=== PATIENT | male | born 1960 | race African-American/Black ===

== ENCOUNTER → 2017-01-08 | Day surgery (SDC) | payer OTHER ==
[2016-12-21 10:27] VITALS: Ht 185.4 cm; Wt 109.1 kg
[~2017-01-08] VITALS: Ht 185.4 cm; Wt 109.1 kg
[~2017-01-08] MED LIST: LIDOCAINE HCL 2% 2 ML VIAL (20MG/ML) ONE; PROPOFOL IV EMULSION 10 MG/ML 20 ML VIAL IV ONE
[2017-01-08 09:17] VITALS: TEMP 36.8
--- NOTE | 2017-01-08 09:55 | Endo History and Physical ---
History & Physical Date of Service: Jan 08, 2017. Chief Complaint: history of polyps Referring Physician: Stephanie SCHMITT History of Present Illness 56 yo male who presents for colonoscopy secondary to history of colon polyps. Past Surgical History Hx Cardiac Surgery: No Hx Internal Defibrillator: No Hx Pacemaker: No Hx Abdominal Surgery: No Hx of Implantable Prosthesis: No Hx Post-Op Nausea and Vomiting: No Hx Cancer Surgery: No Hx Thoracic Surgery: No Hx Orthopedic: Yes (LT WRIST SURGERY S/P BREAK) Hx Urinary Tract Surgery: No Family History None Social History Smoking Status: Never Smoker Hx Substance Use: No Hx Alcohol Use: Yes (OCCASIONAL) Allergies Coded Allergies: No Known Allergies (Verified , 01/08/17) Current Medications Reported Home Medications Medications Dose Route/Sig Max Daily Dose Days Date Category No Active Prescriptions or Reported Medications Rx Vital Signs Weight (Kilograms): 109.09 Height (Feet): 6 Height (Inches): 1 Date Time Temp Pulse Resp B/P (MAP) Pulse Ox O2 Delivery O2 Flow Rate FiO2 01/08/17 09:17 36.8 72 20 141/83 (102) 98 Room Air Physical Exam General Appearance: WD/WN, no apparent distress Respiratory/Chest: Auscultation: breath sounds normal Cardiovascular: Heart Auscultation: RRR Abdomen: Bowel Sounds: normal Inspection & Palpation: soft, non-distended, no tenderness, guarding & rebound Assessment and Plan Assessment: 56 yo male who presents for colonoscopy secondary to history of colon polyps. Plan: Proceed with colonoscopy.
--- NOTE | 2017-01-08 10:32 | GI REPORT ---
Procedure Date: 01/08/2017 9:46 AM Procedure: Colonoscopy Indications: High risk colon cancer surveillance: Personal history of colonic polyps Medicines: Monitored Anesthesia Care Complications: No immediate complications. Estimated Blood Loss: Estimated blood loss: none. Procedure: Pre-Anesthesia Assessment: - Prior to the procedure, a History and Physical was performed, and patient medications and allergies were reviewed. The patient's tolerance of previous anesthesia was also reviewed. The risks and benefits of the procedure and the sedation options and risks were discussed with the patient. All questions were answered, and informed consent was obtained. Prior Anticoagulants: The patient has taken no previous anticoagulant or antiplatelet agents. ASA Grade Assessment: II - A patient with mild systemic disease. After reviewing the risks and benefits, the patient was deemed in satisfactory condition to undergo the procedure. After I obtained informed consent, the scope was passed under direct vision. Throughout the procedure, the patient's blood pressure, pulse, and oxygen saturations were monitored continuously. The scope was introduced through the anus and advanced to the terminal ileum. The colonoscopy was performed without difficulty. The patient tolerated the procedure well. The quality of the bowel preparation was good. The terminal ileum, ileocecal valve, appendiceal orifice, and rectum were photographed. Findings: Four sessile polyps were found in the rectum and in the sigmoid colon. The polyps were 3 to 5 mm in size. These polyps were removed with a cold snare. Resection and retrieval were complete. Two sessile and semi-pedunculated polyps were found in the rectum. The polyps were 5 to 11 mm in size. These polyps were removed with a hot snare. Resection and retrieval were complete. Area was tattooed with an injection of 3 mL of Alejandra ink. Multiple small-mouthed diverticula were found in the sigmoid colon. Non-bleeding internal hemorrhoids were found during retroflexion. The hemorrhoids were small. Impression: - Four 3 to 5 mm polyps in the rectum and in the sigmoid colon, removed with a cold snare. Resected and retrieved. - Two 5 to 11 mm polyps in the rectum, removed with a hot snare. Resected and retrieved. Tattooed. - Diverticulosis in the sigmoid colon. - Non-bleeding internal hemorrhoids. Recommendation: - Resume previous diet. - Continue present medications. - Repeat colonoscopy for surveillance based on pathology results. - Return to primary care physician as previously scheduled. Carlos Be DO 01/08/2017 10:30:46 AM This report has been signed electronically. Note Initiated On: 01/08/2017 9:46 AM I attest to the content of the Intraoperative Record and orders documented therein, exceptions below
--- NOTE | 2017-01-08 10:39 | Anesthesiology Progress Note ---
Anesthesia Post Op Note Date & Time Jan 08, 2017 at 10:39 Vital Signs Pain Intensity: 0 Vital Signs Past 12 Hours Date Time Temp Pulse Resp B/P (MAP) Pulse Ox O2 Delivery O2 Flow Rate FiO2 01/08/17 09:17 36.8 72 20 141/83 (102) 98 Room Air Notes Mental Status: alert / awake / arousable, participated in evaluation Pt Amnestic to Procedure: Yes Nausea / Vomiting: adequately controlled Pain: adequately controlled Airway Patency, RR, SpO2: stable & adequate BP & HR: stable & adequate Hydration State: stable & adequate Anesthetic Complications: no major complications apparent
[2017-01-08 10:58] VITALS: BP 126/90; PULSE 76; O2SAT 99
--- NOTE | 2017-01-08 11:04 | Discharge Instructions ---
Endoscopy Patient Instructions Date / Procedure(s) Performed Jan 08, 2017. Colonoscopy Allergy Information Coded Allergies: No Known Allergies (Verified , 01/08/17) Discharge Date / Findings Jan 08, 2017. Colon polyps Rectal polyp Diverticulosis Internal hemorrhoids Medication Instructions OK to resume all medications today as prescribed Reported Home Medications Medications Dose Route/Sig Max Daily Dose Days Date Category No Active Prescriptions or Reported Medications Rx Provider Instructions Activity Restrictions - No exercising or heavy lifting for 24 hours. - Do not drink alcohol the day of the procedure. - Do not drive a car or operate machinery until the day after the procedure. - Do not make any important decisions or sign important papers in 24 hours after the procedure. Following Day: - Return to full activity which may include returning to work/school. Diet Start your diet with liquids and light foods (jello, soup, juice, toast). Then eat your usual diet if not nauseated. Treatment For Common After Affects For mild abdominal pain, bloating, or excessive gas: - Rest - Eat lightly - Lie on right side Follow-Up Information Follow-up with Stephanie SCHMITT as scheduled Anesthesia Information What You Should Know You have had a procedure that required some medicine to reduce anxiety and discomfort. This treatment is called moderate sedation. After receiving the treatment, you may be sleepy, but you will be able to breathe on your own. The effects of the treatment may last for several hours. Follow these instructions along with Activity/Diet recommendations noted above: * Do NOT do anything where dizziness or clumsiness would be dangerous. * Rest quietly at home today, then you can be up and about tomorrow. * Have a responsible person stay with you the rest of today. * You may have had an I.V. today. If so, you may take the dressing off later today. Recommendations Call your doctor if: * Trouble breathing * Continuous vomiting for more than 24 hours * Temperature above 101 degrees * Severe abdominal pain or bloating * Pain not relieved by pain medicine ordered * There is increased drainage or redness from any incision * A large amount of rectal bleeding greater than 2-3 tablespoons. (If you had a polyp/s removed or have hemorrhoids, a small amount of blood - from the rectum is to be expected.) * You have any unanswered questions or concerns. IN THE EVENT OF A SERIOUS EMERGENCY, GO TO THE NEAREST EMERGENCY ROOM Your discharge instructions were prepared by provider Carlos Be. Patient Instructions Signature Page Curtisrubinablanca Bee Patient (or Guardian) Signature/Date: I have read and understand the instructions given to me by my caregivers. Caregiver/RN/Doctor Signature/Date: The above-named patient and/or guardian has received patient instructions on this date. + Original Patient Signature Page (only) stays with chart. Please make copy for patient.
== END | disposition home or self-care (01) ==
LOC: C.GI 08:46
PROVIDERS: ATTEND Internal Medicine
DX: Z12.11 Encounter for screening for malignant neoplasm of colon (principal); D12.5 Benign neoplasm of sigmoid colon; D12.8 Benign neoplasm of rectum; K57.30 Diverticulosis of large intestine without perforation or abscess without bleeding; K64.8 Other hemorrhoids; Z86.010 Personal history of colon polyps

== ENCOUNTER 2017-12-08 15:33 | Observation (INO) | payer OTHER ==
[~2017-12-08] VITALS: Ht 185.4 cm; Wt 104.8 kg
[2017-12-08] MEDS ORDERED: ADENOSINE IV SOLN 3 MG/ML 2 ML VIAL ONE (15:42)
[2017-12-08] MEDS ORDERED: OPTIRAY 320 IV PRN (16:00)
[2017-12-08 16:01] LABS: ISTAT IONIZED CALCIUM 1.11 mmol/l (1.12-1.32); ISTAT POTASSIUM 3.6 mEq/L (3.3-5.0)
[2017-12-08 16:10] LABS: BASO % 0.1 %; BASO ABS # 0.01 K/uL (0-0.2); EOS % 1.4 %; HEMATOCRIT 41.4 % (42-52); HEMOGLOBIN 14.2 g/dL (14.0-18.0); IG# 0.01 K/uL (0.00-0.02); LYMPH % 44.1 %; LYMPH ABS # 3.18 K/uL (1.2-3.4); MEAN CELL VOLUME 88.3 fL (80-100); MEAN CORPUSCULAR HEMOGLOBIN 30.3 pg (25-34); MEAN CORPUSCULAR HGB CONC 34.3 g/dl (32-36); MEAN PLATELET VOLUME 10.1 fL (7.4-10.4); MONO % 9.7 %; NEUT % 44.6 %; NEUT ABS # 3.21 K/uL (1.4-6.5); PLATELET COUNT 335 K/uL (130-400); RED CELL DISTRIBUTION WIDTH CV 12.5 % (11.5-14.5); RED CELL DISTRIBUTION WIDTH SD 39.8 fL (36.4-46.3); WHITE BLOOD COUNT 7.21 K/uL (4.8-10.8)
[2017-12-08] MEDS ORDERED: MULT-513 PO (16:15)
[2017-12-08] MEDS ORDERED: OMEG10007 PO (16:15)
[2017-12-08] MEDS ORDERED: COEN1CAP7 PO (16:15)
[2017-12-08] MEDS ORDERED: ASPI325T39 PO (16:15)
[2017-12-08 16:18] LABS: PTT PATIENT 27.3 SECONDS (21.0-31.0)
[2017-12-08 16:27] LABS: CALCIUM 8.6 mg/dl (8.5-10.1); CREATININE 1.08 mg/dl (0.60-1.40); POTASSIUM 3.6 mmol/L (3.5-5.1)
--- NOTE | 2017-12-08 16:40 | DIAGNOSTIC IMAGING REPORT ---
CT ANGIOGRAM OF THE CHEST CLINICAL HISTORY: Atypical chest pain. COMPARISON STUDY: No priors. TECHNIQUE: Following the IV administration of 90 cc of Optiray 320, CT angiogram of the chest was performed from the upper abdomen to the thoracic inlet utilizing the pulmonary embolus protocol. Images are reviewed in the axial, sagittal, and coronal planes. 3-D MIPS images are created and assessed. IV contrast was administered without complication. A dose lowering technique was utilized adhering to the principles of ALARA. CT DOSE: 584.17 mGy.cm FINDINGS: Thyroid: Imaged portions of the thyroid gland are normal in size and attenuation. Thoracic aorta: The thoracic aorta is normal in caliber and demonstrates standard 3-vessel arch anatomy. No dissection is seen. Pulmonary vasculature: The pulmonary trunk is normal in caliber. There are no filling defects identified in main, lobar, or segmental pulmonary branches to suggest pulmonary embolus. Heart: The heart is normal in size and without pericardial effusion. The coronary arteries are densely calcified. Lungs and pleural spaces: Evaluation of the lung parenchyma is modestly degraded by motion artifact. Mild emphysematous change is seen at the lung apices. No airspace consolidation or pleural effusion is identified. Mild diffuse peribronchial thickening suggests reactive airway disease. The trachea and central airways are clear. There is a 7 mm pleural-based nodule in the right middle lobe along the minor fissure seen on image #132. Mediastinum: There is no mediastinal lymphadenopathy. Janie: Clear. Axillae: There is no axillary lymphadenopathy. Upper abdomen: Partially visualized upper abdominal viscera is within normal limits. Skeletal structures: No lytic or blastic bony lesions are seen. Numerous mild compression deformities are noted throughout the thoracic spine. IMPRESSION: 1. There is no evidence of pulmonary embolus in the main, lobar, or segmental pulmonary arteries. 2. Mild emphysema. 3. There is no airspace consolidation or pleural effusion. 4. Mild diffuse peribronchial thickening suggests reactive air disease. Clinical correlation will be required. 5. There is a 7 mm pathologically indeterminant but low suspicion pleural-based nodule in the right middle lobe along the minor fissure. This can be followed as per the Fleischner criteria. See below. 6. The coronary arteries are densely calcified. 7. Additional findings as above. Please refer to below summary of Fleischner criteria recommendations for follow-up of incidental CT nodules (H [place], Guidelines for management of small pulmonary nodules detected on CT scans: A statement from the Fleischner Society, Radiology 237: [phone].) SOLID NODULES Solitary nodule size: <6 mm * low risk patients: no follow-up needed * high risk patients: optional CT at 12 months Solitary nodule size: 6-8 mm * low risk patients: follow-up at 6-12 months, then consider further follow-up at 18-24 months * high risk patients: initial follow-up CT at 6-12 months and then at 18-24 months if no change Solitary nodule size: >8 mm * either low or high risk patients - consider follow-up CT at 3 months, and/or CT-PET, and/or biopsy Multiple nodules size: <6 mm * low risk patients: no routine follow-up * high risk patients: optional CT at 12 months Multiple nodules size: 6-8 mm * low risk patients: follow-up at 3-6 months, then consider further follow-up at 18-24 months * high risk patients: follow-up at 3-6 months, then at 18-24 months if no change Multiple nodules size: >8 mm * low risk patients: follow-up at 3-6 months, then consider further follow-up at 18-24 months * high risk patients: follow-up at 3-6 months, then at 18-24 months if no change Note: newly detected indeterminate nodule in persons 35 years of age or older. * low risk patients: minimal or absent history of smoking and/or other known risk factors * high risk patients: history of smoking or of other known risk factors (e.g. first degree relative with lung cancer, or exposure to asbestos, radon, uranium) * if a nodule up to 8 mm is partly solid or is ground glass further follow-up is required after 24 months to exclude possible slow growing adenocarcinoma (LILY) SUBSOLID NODULES Solitary pure ground-glass nodule * nodule size <6 mm - no CT follow-up required * nodule size >=6 mm - follow-up CT at 6-12 months, then every 2 years until 5 years Solitary part-solid nodule * nodule size <6 mm - no CT follow-up required * nodule size >=6 mm - follow-up CT at 3-6 months. If unchanged, and solid component remains <6 mm, then annual follow-up for 5 years Multiple subsolid nodules * nodule size <6 mm - follow-up CT at 3-6 months, consider further follow-up at 2 and 4 years if stable * nodule size >=6 mm - follow-up CT at 3-6 months, subsequent management based on the most suspicious nodule(s) Electronically signed by: Sedrick Salomon M.D. 12/08/2017 4:39 PM Dictated Date/Time: 12/08/2017 4:33 PM
[2017-12-08] MEDS ORDERED: ACETAMINOPHEN 325 MG TAB PO PRN (17:45)
[2017-12-08] MEDS ORDERED: NITROGLYCERIN 0.4 MG SL PER TAB CHARGE SL PRN (17:45)
--- NOTE | 2017-12-08 17:55 | History and Physical ---
History & Physical Date & Time of Service: Dec 08, 2017 at 17:55 Chief Complaint: Chest Pain Primary Care Physician: No Doctor, Assigned History of Present Illness Source: patient, spouse, hospital records 57-year-old male with no significant past medical history presented to the ER for chest pain. Patient said chest pain occurs 1 hour after he had sexual intercourse with his partner. He said he was sitting on the sofa when the chest pain occurred. He said he felt someone was sitting in his chest. Described the pain has 8 out of 10, nonradiating, constant associated with shortness of breath. His partner gave him aspirin and he drove to the ER. he denies any similar episode in the past. He recently had a trip to [place] Pt said that he is very active and he plays instrument in a band. When presented to the ER his heart rate was in the 220s and EKG show SVT. SVT broke after Valsalva maneuver. Denies any substance use or illicit drug. Currently patient denies any chest pain, palpitation, dizziness, shortness of breath. Past Medical/Surgical History Medical Problems: (1) Chest pain (2) No significant past medical history Family History Atrial fibrillation Social History Smoking Status: Former Smoker Alcohol Use: socially Allergies Coded Allergies: No Known Allergies (Verified , 01/08/17) Home Medications Scheduled Coenzyme Q10 (Ubidecarenone) (Coq10), 1 CAP PO DAILY Fish Oil ([place]-3), 1 CAP PO DAILY Multivitamins/Minerals (Mvi With Minerals), 1 TAB PO DAILY Review of Systems Constitutional: No fever, No chills Eyes: No worsening of vision, No eye pain ENT: No nasal symptoms, No sore throat Respiratory: + shortness of breath, No wheezing Cardiovascular: + chest pain, + palpitations, No claudication Abdomen: No pain, No nausea, No vomiting Musculoskeletal: No calf pain Genitourinary - Male: No hematuria, No dysuria Neurologic: No numbness/tingling, No balance problems Psychiatric: No substance abuse Endocrine: No fatigue Hematologic / Lymphatic: No night sweats Integumentary: No rash, No itch Physical Exam Vital Signs Date Time Temp Pulse Resp B/P (MAP) Pulse Ox O2 Delivery O2 Flow Rate FiO2 12/08/17 17:21 133/97 12/08/17 17:00 92 29 98 12/08/17 16:31 94 16 139/102 96 Room Air 12/08/17 15:54 100 12/08/17 15:49 98 Room Air 12/08/17 15:45 114 12/08/17 15:41 213 12/08/17 15:34 18 Room Air General Appearance: WD/WN, no apparent distress Head: normocephalic, atraumatic Eyes: PERRL, EOMI ENT: hearing grossly normal Neck: no JVD, trachea midline Respiratory/Chest: lungs clear, no respiratory distress, no accessory muscle use Cardiovascular: no JVD, no murmur, + tachycardia Abdomen/GI: normal bowel sounds, soft Back: no CVA tenderness Extremities/Musculoskelatal: no calf tenderness Neurologic/Psych: no motor/sensory deficits, alert, oriented x 3 Skin: warm/dry, no rash Diagnostics Laboratory Results Results Past 24 Hours Test 12/08/17 15:40 12/08/17 15:45 12/08/17 15:47 Range/Units White Blood Count 7.21 4.8-10.8 K/uL Red Blood Count 4.69 4.7-6.1 M/uL Hemoglobin 14.2 14.0-18.0 g/dL Hematocrit 41.4 42-52 % Mean Corpuscular Volume 88.3 80-100 fL Mean Corpuscular Hemoglobin 30.3 25-34 pg Mean Corpuscular Hemoglobin Concent 34.3 32-36 g/dl Platelet Count 335 130-400 K/uL Mean Platelet Volume 10.1 7.4-10.4 fL Neutrophils (%) (Auto) 44.6 % Lymphocytes (%) (Auto) 44.1 % Monocytes (%) (Auto) 9.7 % Eosinophils (%) (Auto) 1.4 % Basophils (%) (Auto) 0.1 % Neutrophils # (Auto) 3.21 1.4-6.5 K/uL Lymphocytes # (Auto) 3.18 1.2-3.4 K/uL Monocytes # (Auto) 0.70 0.11-0.59 K/uL Eosinophils # (Auto) 0.10 0-0.5 K/uL Basophils # (Auto) 0.01 0-0.2 K/uL RDW Standard Deviation 39.8 36.4-46.3 fL RDW Coefficient of Variation 12.5 11.5-14.5 % Immature Granulocyte % (Auto) 0.1 % Immature Granulocyte # (Auto) 0.01 0.00-0.02 K/uL Prothrombin Time 10.3 9.0-12.0 SECONDS Prothromb Time International Ratio 1.0 0.9-1.1 Activated Partial Thromboplast Time 27.3 21.0-31.0 SECONDS Partial Thromboplastin Ratio 1.1 Sodium Level 139 136-145 mmol/L Potassium Level 3.6 3.5-5.1 mmol/L Chloride Level 108 98-107 mmol/L Carbon Dioxide Level 23 21-32 mmol/L Anion Gap 8.0 17.0 16-25 mmol/L Blood Urea Nitrogen 14 7-18 mg/dl Creatinine 1.08 0.60-1.40 mg/dl Est Creatinine Clear Calc Drug Dose 86.3 ml/min Estimated GFR () 88.5 Estimated GFR (Non- 76.3 BUN/Creatinine Ratio 13.4 10-20 Random Glucose 102 70-99 mg/dl Calcium Level 8.6 8.5-10.1 mg/dl Magnesium Level 2.1 1.8-2.4 mg/dl Bedside Troponin I < 0.030 0-0.045 ng/ml Bedside Hemoglobin 14.6 14.0-18.0 g/dl Bedside Hematocrit 43 42-52 % Bedside Sodium 142 135-144 mEq/L Bedside Potassium 3.6 3.3-5.0 mEq/L Bedside Chloride 107 101-112 mEq/L Bedside Total CO2 22 24-31 mEq/l Bedside Blood Urea Nitrogen 15 7-18 mg/dl Bedside Creatinine 1.0 0.6-1.3 mg/dl Bedside Glucose (other) 110 70-99 mg/dl Bedside Ionized Calcium (Jemal) 1.11 1.12-1.32 mmol/l Diagnostic Radiology CT ANGIOGRAM OF THE CHEST CLINICAL HISTORY: Atypical chest pain. COMPARISON STUDY: No priors. TECHNIQUE: Following the IV administration of 90 cc of Optiray 320, CT angiogram of the chest was performed from the upper abdomen to the thoracic inlet utilizing the pulmonary embolus protocol. Images are reviewed in the axial, sagittal, and coronal planes. 3-D MIPS images are created and assessed. IV contrast was administered without complication. A dose lowering technique was utilized adhering to the principles of ALARA. CT DOSE: 584.17 mGy.cm FINDINGS: Thyroid: Imaged portions of the thyroid gland are normal in size and attenuation. Thoracic aorta: The thoracic aorta is normal in caliber and demonstrates standard 3-vessel arch anatomy. No dissection is seen. Pulmonary vasculature: The pulmonary trunk is normal in caliber. There are no filling defects identified in main, lobar, or segmental pulmonary branches to suggest pulmonary embolus. Heart: The heart is normal in size and without pericardial effusion. The coronary arteries are densely calcified. Lungs and pleural spaces: Evaluation of the lung parenchyma is modestly degraded by motion artifact. Mild emphysematous change is seen at the lung apices. No airspace consolidation or pleural effusion is identified. Mild diffuse peribronchial thickening suggests reactive airway disease. The trachea and central airways are clear. There is a 7 mm pleural-based nodule in the right middle lobe along the minor fissure seen on image #132. Mediastinum: There is no mediastinal lymphadenopathy. Janie: Clear. Axillae: There is no axillary lymphadenopathy. Upper abdomen: Partially visualized upper abdominal viscera is within normal limits. Skeletal structures: No lytic or blastic bony lesions are seen. Numerous mild compression deformities are noted throughout the thoracic spine. IMPRESSION: 1. There is no evidence of pulmonary embolus in the main, lobar, or segmental pulmonary arteries. 2. Mild emphysema. 3. There is no airspace consolidation or pleural effusion. 4. Mild diffuse peribronchial thickening suggests reactive air disease. Clinical correlation will be required. 5. There is a 7 mm pathologically indeterminant but low suspicion pleural-based nodule in the right middle lobe along the minor fissure. This can be followed as per the Fleischner criteria. See below. 6. The coronary arteries are densely calcified. 7. Additional findings as above. Please refer to below summary of Fleischner criteria recommendations for follow-up of incidental CT nodules (Martell Lugo, Guidelines for management of small pulmonary nodules detected on CT scans: A statement from the Fleischner Society, Radiology 237: [phone].) SOLID NODULES Solitary nodule size: <6 mm * low risk patients: no follow-up needed * high risk patients: optional CT at 12 months Solitary nodule size: 6-8 mm * low risk patients: follow-up at 6-12 months, then consider further follow-up at 18-24 months * high risk patients: initial follow-up CT at 6-12 months and then at 18-24 months if no change Solitary nodule size: >8 mm * either low or high risk patients - consider follow-up CT at 3 months, and/or CT-PET, and/or biopsy Multiple nodules size: <6 mm * low risk patients: no routine follow-up * high risk patients: optional CT at 12 months Multiple nodules size: 6-8 mm * low risk patients: follow-up at 3-6 months, then consider further follow-up at 18-24 months * high risk patients: follow-up at 3-6 months, then at 18-24 months if no change Multiple nodules size: >8 mm * low risk patients: follow-up at 3-6 months, then consider further follow-up at 18-24 months * high risk patients: follow-up at 3-6 months, then at 18-24 months if no change Note: newly detected indeterminate nodule in persons 35 years of age or older. * low risk patients: minimal or absent history of smoking and/or other known risk factors * high risk patients: history of smoking or of other known risk factors (e.g. first degree relative with lung cancer, or exposure to asbestos, radon, uranium) * if a nodule up to 8 mm is partly solid or is ground glass further follow-up is required after 24 months to exclude possible slow growing adenocarcinoma (LILY) SUBSOLID NODULES Solitary pure ground-glass nodule * nodule size <6 mm - no CT follow-up required * nodule size >=6 mm - follow-up CT at 6-12 months, then every 2 years until 5 years Solitary part-solid nodule * nodule size <6 mm - no CT follow-up required * nodule size >=6 mm - follow-up CT at 3-6 months. If unchanged, and solid component remains <6 mm, then annual follow-up for 5 years Multiple subsolid nodules * nodule size <6 mm - follow-up CT at 3-6 months, consider further follow-up at 2 and 4 years if stable * nodule size >=6 mm - follow-up CT at 3-6 months, subsequent management based on the most suspicious nodule(s) Electronically signed by: Sedrick Salomon M.D. 12/08/2017 4:39 PM Dictated Date/Time: 12/08/2017 4:33 PM Impression Assessment and Plan Chest Pain Need to r/o ACS Received Aspirin prior arrival in the the ER EKG on admission showed SVT Repeat EKG showed no ischemic changes Initial troponin negative Follow up troponin level Continue aspirin Cardio consult Check ECHO and Lipid panel and EKG in am Will monitor in tele SVT HR on admission 218 Broke with Valsalva maneuver HR control Check TSH and UDS DVT px on heparin subq CODE STATUS FULL CODE Resuscitation Status VTE Prophylaxis Will order VTE Prophylaxis: Yes
--- NOTE | 2017-12-08 17:58 | EMERGENCY ROOM VISIT NOTE ---
History Report prepared by Katerinaibbrayan: Caroline Puente Under the Supervision of: Dr. Damon Kemp M.D. 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 He states he had sexual intercourse about an hour before the pain started. He stated he showered and was just sitting down when the chest pain started. He denies using Viagra or any similar products. He describes his pain as feeling like "being punched in the chest" and rates his discomfort as an 8/10 in severity. He has never experienced similar pain in the past. He admits to some mild shortness of breath. He states he occasionally drinks alcohol and last had "a couple drinks last night". He denies any family history of heart disease. He did drive to [place] recently. 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 He denies any history of hypertension, hyperlipidemia or DM and states he is typically very healthy. He admits to a family history of atrial fibrillation. Source of History: patient Onset: 30 minutes MANAGER FRENCH Position: chest Symptom Intensity: 8/10 Quality: other (Punched in the chest) Timing: resolved Associated Symptoms: + SOB Review of Systems See HPI for pertinent positives & negatives. A total of 10 systems reviewed and were otherwise negative. Past Medical & Surgical Medical Problems: (1) Chest pain (2) No significant past medical history Family History Atrial fibrillation Social History Smoking Status: Former Smoker Alcohol Use: occasionally Drug Use: none Marital Status: in relationship Housing Status: lives with family Occupation Status: retired Current/Historical Medications Scheduled Aspirin (Aspirin Ec), 325 MG PO TODAY Coenzyme Q10 (Ubidecarenone) (Coq10), 1 CAP PO DAILY Fish Oil (Magazine-3), 1 CAP PO DAILY Multivitamins/Minerals (Mvi With Minerals), 1 TAB PO DAILY Allergies Coded Allergies: No Known Allergies (Verified , 01/08/17) Physical Exam Vital Signs Date Time Temp Pulse Resp B/P (MAP) Pulse Ox O2 Delivery O2 Flow Rate FiO2 12/08/17 17:21 133/97 12/08/17 17:00 92 29 98 12/08/17 16:31 94 16 139/102 96 Room Air 12/08/17 15:54 100 12/08/17 15:49 98 Room Air 12/08/17 15:45 114 12/08/17 15:41 213 12/08/17 15:34 18 Room Air Physical Exam Constitutional: Vital signs reviewed. General: Patient is anxious appearing. Eyes: Pupils are equal round reactive to light. Slight conjunctival injection to bilateral eyes. ENT: Pharynx is clear without erythema or exudate. Mucous membranes are moist. Neck supple without meningeal signs. Respiratory: Clear to auscultation bilaterally. Breath sounds are equal bilaterally. Cardiovascular: Tachycardic heart rate of 215. Regular rhythm. No rubs or gallops. GI: Soft, nondistended and nontender. Bowel sounds are present. Musculoskeletal: No peripheral edema. No lower extremity tenderness. Integumentary: No cyanosis. Neurological: The patient is awake and alert. No focal deficits. Psychiatric: Anxious appearing. Medical Decision & Procedures ER Provider Diagnostic Interpretation: Radiology results as stated below per my review and the radiologist's interpretation: CT ANGIOGRAM OF THE CHEST CLINICAL HISTORY: Atypical chest pain. COMPARISON STUDY: No priors. TECHNIQUE: Following the IV administration of 90 cc of Optiray 320, CT angiogram of the chest was performed from the upper abdomen to the thoracic inlet utilizing the pulmonary embolus protocol. Images are reviewed in the axial, sagittal, and coronal planes. 3-D MIPS images are created and assessed. IV contrast was administered without complication. A dose lowering technique was utilized adhering to the principles of ALARA. CT DOSE: 584.17 mGy.cm FINDINGS: Thyroid: Imaged portions of the thyroid gland are normal in size and attenuation. Thoracic aorta: The thoracic aorta is normal in caliber and demonstrates standard 3-vessel arch anatomy. No dissection is seen. Pulmonary vasculature: The pulmonary trunk is normal in caliber. There are no filling defects identified in main, lobar, or segmental pulmonary branches to suggest pulmonary embolus. Heart: The heart is normal in size and without pericardial effusion. The coronary arteries are densely calcified. Lungs and pleural spaces: Evaluation of the lung parenchyma is modestly degraded by motion artifact. Mild emphysematous change is seen at the lung apices. No airspace consolidation or pleural effusion is identified. Mild diffuse peribronchial thickening suggests reactive airway disease. The trachea and central airways are clear. There is a 7 mm pleural-based nodule in the right middle lobe along the minor fissure seen on image #132. Mediastinum: There is no mediastinal lymphadenopathy. Janie: Clear. Axillae: There is no axillary lymphadenopathy. Upper abdomen: Partially visualized upper abdominal viscera is within normal limits. Skeletal structures: No lytic or blastic bony lesions are seen. Numerous mild compression deformities are noted throughout the thoracic spine. IMPRESSION: 1. There is no evidence of pulmonary embolus in the main, lobar, or segmental pulmonary arteries. 2. Mild emphysema. 3. There is no airspace consolidation or pleural effusion. 4. Mild diffuse peribronchial thickening suggests reactive air disease. Clinical correlation will be required. 5. There is a 7 mm pathologically indeterminant but low suspicion pleural-based nodule in the right middle lobe along the minor fissure. This can be followed as per the Fleischner criteria. See below. 6. The coronary arteries are densely calcified. 7. Additional findings as above. Please refer to below summary of Fleischner criteria recommendations for follow-up of incidental CT nodules (Martell Lugo, Guidelines for management of small pulmonary nodules detected on CT scans: A statement from the Fleischner Society, Radiology 237: [phone].) SOLID NODULES Solitary nodule size: <6 mm * low risk patients: no follow-up needed * high risk patients: optional CT at 12 months Solitary nodule size: 6-8 mm * low risk patients: follow-up at 6-12 months, then consider further follow-up at 18-24 months * high risk patients: initial follow-up CT at 6-12 months and then at 18-24 months if no change Solitary nodule size: >8 mm * either low or high risk patients - consider follow-up CT at 3 months, and/or CT-PET, and/or biopsy Multiple nodules size: <6 mm * low risk patients: no routine follow-up * high risk patients: optional CT at 12 months Multiple nodules size: 6-8 mm * low risk patients: follow-up at 3-6 months, then consider further follow-up at 18-24 months * high risk patients: follow-up at 3-6 months, then at 18-24 months if no change Multiple nodules size: >8 mm * low risk patients: follow-up at 3-6 months, then consider further follow-up at 18-24 months * high risk patients: follow-up at 3-6 months, then at 18-24 months if no change Note: newly detected indeterminate nodule in persons 35 years of age or older. * low risk patients: minimal or absent history of smoking and/or other known risk factors * high risk patients: history of smoking or of other known risk factors (e.g. first degree relative with lung cancer, or exposure to asbestos, radon, uranium) * if a nodule up to 8 mm is partly solid or is ground glass further follow-up is required after 24 months to exclude possible slow growing adenocarcinoma (LILY) SUBSOLID NODULES Solitary pure ground-glass nodule * nodule size <6 mm - no CT follow-up required * nodule size >=6 mm - follow-up CT at 6-12 months, then every 2 years until 5 years Solitary part-solid nodule * nodule size <6 mm - no CT follow-up required * nodule size >=6 mm - follow-up CT at 3-6 months. If unchanged, and solid component remains <6 mm, then annual follow-up for 5 years Multiple subsolid nodules * nodule size <6 mm - follow-up CT at 3-6 months, consider further follow-up at 2 and 4 years if stable * nodule size >=6 mm - follow-up CT at 3-6 months, subsequent management based on the most suspicious nodule(s) Electronically signed by: Sedrick Salomon M.D. 12/08/2017 4:39 PM Laboratory Results 12/08/17 15:40 Red Blood Count 4.69, Mean Corpuscular Volume 88.3, Mean Corpuscular Hemoglobin 30.3, Mean Corpuscular Hemoglobin Concent 34.3, Mean Platelet Volume 10.1, Neutrophils (%) (Auto) 44.6, Lymphocytes (%) (Auto) 44.1, Monocytes (%) (Auto) 9.7, Eosinophils (%) (Auto) 1.4, Basophils (%) (Auto) 0.1, Neutrophils # (Auto) 3.21, Lymphocytes # (Auto) 3.18, Monocytes # (Auto) 0.70, Eosinophils # (Auto) 0.10, Basophils # (Auto) 0.01 12/08/17 15:40 Test 12/08/17 15:40 12/08/17 15:45 12/08/17 15:47 White Blood Count 7.21 K/uL (4.8-10.8) Red Blood Count 4.69 M/uL (4.7-6.1) Hemoglobin 14.2 g/dL (14.0-18.0) Hematocrit 41.4 % (42-52) Mean Corpuscular Volume 88.3 fL (80-100) Mean Corpuscular Hemoglobin 30.3 pg (25-34) Mean Corpuscular Hemoglobin Concent 34.3 g/dl (32-36) Platelet Count 335 K/uL (130-400) Mean Platelet Volume 10.1 fL (7.4-10.4) Neutrophils (%) (Auto) 44.6 % Lymphocytes (%) (Auto) 44.1 % Monocytes (%) (Auto) 9.7 % Eosinophils (%) (Auto) 1.4 % Basophils (%) (Auto) 0.1 % Neutrophils # (Auto) 3.21 K/uL (1.4-6.5) Lymphocytes # (Auto) 3.18 K/uL (1.2-3.4) Monocytes # (Auto) 0.70 K/uL (0.11-0.59) Eosinophils # (Auto) 0.10 K/uL (0-0.5) Basophils # (Auto) 0.01 K/uL (0-0.2) RDW Standard Deviation 39.8 fL (36.4-46.3) RDW Coefficient of Variation 12.5 % (11.5-14.5) Immature Granulocyte % (Auto) 0.1 % Immature Granulocyte # (Auto) 0.01 K/uL (0.00-0.02) Prothrombin Time 10.3 SECONDS (9.0-12.0) Prothromb Time International Ratio 1.0 (0.9-1.1) Activated Partial Thromboplast Time 27.3 SECONDS (21.0-31.0) Partial Thromboplastin Ratio 1.1 Est Creatinine Clear Calc Drug Dose 86.3 ml/min Estimated GFR () 88.5 Estimated GFR (Non- 76.3 BUN/Creatinine Ratio 13.4 (10-20) Calcium Level 8.6 mg/dl (8.5-10.1) Magnesium Level 2.1 mg/dl (1.8-2.4) Bedside Troponin I < 0.030 ng/ml (0-0.045) Bedside Hemoglobin 14.6 g/dl (14.0-18.0) Bedside Hematocrit 43 % (42-52) Bedside Sodium 142 mEq/L (135-144) Bedside Potassium 3.6 mEq/L (3.3-5.0) Bedside Chloride 107 mEq/L (101-112) Bedside Total CO2 22 mEq/l (24-31) Anion Gap 17.0 mmol/L (16-25) Bedside Blood Urea Nitrogen 15 mg/dl (7-18) Bedside Creatinine 1.0 mg/dl (0.6-1.3) Bedside Glucose (other) 110 mg/dl (70-99) Bedside Ionized Calcium (Jemal) 1.11 mmol/l (1.12-1.32) Laboratory results as reviewed by me. ECG Per My Interpretation Indication: chest pain Rate (beats per minute): 128 Rhythm: SVT Findings: ST depression (diffusely), other (No P-waves, R axis is 80 degrees) Change: 2nd EKG on 12/08/17: Sinus Tachycardia, rate of 113, ST depressions from V3 to V6 and inferiorly, no PVC ED Course 1539: The patient was evaluated in room B1. A complete history and physical exam was performed. 1645: I reevaluated the patient. He has no further chest pain. I discussed his test results and he is agreeable with the plan. 1659: I discussed the patients case with Dr. [facility] The patient will be further evaluated. Medical Decision This is a 57-year-old male presents with chest pain and tachycardia. Differential diagnosis includes dysrhythmia, SVT, atrial fibrillation with RVR, metabolic derangement, electrolyte abnormality, ACS, pulmonary embolism I did perform a limited focused review of portions of the patient's old chart on the electronic medical record. The patient has had no recent pertinent visits to this hospital. I did evaluate the patient as noted above. IV access was established. The patient was placed on a continuous cardiac monitor technician. The patient is presenting with sudden onset of chest pain and tachycardia. I did order and personally review the patient's 12-lead EKG as described above. The patient has SVT. I did attempt carotid sinus massage without any effect. I did attempt a Valsalva maneuver and this did not help as well. I then tried a modified Valsalva maneuver. The patient blew into a syringe for 10 seconds while seated and then he was abruptly placed on his back and his legs raised. While his legs are raised his rhythm appeared to resemble torsades for a few seconds. The patient was awake during this time and he went into sinus tachycardia. A repeat 12- lead EKG was obtained which showed sinus tachycardia and diffuse ST depressions as described above. His chest pain improved significantly although did not completely resolve at that time. I did order and review the patient's blood work as noted in the electronic medical record. Troponin is negative. I did order a CT of the chest to rule out PE given his frequent history of driving and sudden onset of pain. I did review the images myself as well as the radiology report as described above. There is no evidence of pulmonary embolism. He does have a pulmonary nodule which I discussed with him. I did reassess the patient. He has no symptoms at this time. I did recommend hospitalization for further evaluation of his symptoms. I did discuss case with the hospitalist and case consultant. Medication Reconcilliation Current Medication List: was personally reviewed by me Blood Pressure Screening Patient's blood pressure: Elevated blood pressure Blood pressure disposition: Referred to PCP Consults Time Called: 1654 Consulting Physician[facility] Returned Call: [phone] I discussed the patients case with [facility]. The patient will be further evaluated. Impression Primary Impression: SVT (supraventricular tachycardia) Additional Impressions: Precordial chest pain Abnormal EKG Scribe Attestation The scribe's documentation has been prepared under my direct and personally reviewed by me in its entirety. I confirm that the note above accurately reflects all work, treatment, procedures, and medical decision making performed by me. Departure Information Dispostion Being Evaluated By Hospitalist Referrals Stephanie Levi (PCP) Patient Instructions My [facility] Problem Qualifiers
[2017-12-08] MEDS ORDERED: IV FLUIDS COMPLETED PRN (18:30)
[2017-12-08 18:50] VITALS: BP 130/91; PULSE 85; TEMP 36.8; O2SAT 98; Ht 185.4 cm; Wt 104.8 kg
[2017-12-08] MEDS ORDERED: SODIUM CHLORIDE 0.9% 1000ML 1,000 ML IV SCH (19:22)
[2017-12-08] MEDS: HEPARIN SOD 5000 UNIT/0.5 ML CARP SQ SCH (22:00)
[2017-12-08 23:40] VITALS: BP 109/70; PULSE 74; TEMP 36.6; O2SAT 99
[2017-12-09 03:27] VITALS: BP 122/78; PULSE 67; TEMP 36.6; O2SAT 96
[2017-12-09 04:50] LABS: CALCIUM 8.1 mg/dl (8.5-10.1); CREATININE 0.8 mg/dl (0.60-1.40); POTASSIUM 3.6 mmol/L (3.5-5.1)
[2017-12-09] MEDS: HEPARIN SOD 5000 UNIT/0.5 ML CARP SQ SCH (05:39)
[2017-12-09 07:08] VITALS: BP 121/74; PULSE 69; TEMP 36.7; O2SAT 98
--- NOTE | 2017-12-09 07:51 | ECHOCARDIOGRAM REPORT ---
*NOTICE TO RECEIVING [employer]Y This information is strictly Confidential and protected under [place] law. [place] law prohibits you from making any further disclosure of this information unless further disclosure is expressly permitted by the written consent of the person to whom it pertains or is authorized by law. A general authorization for the release of medical or other information is not sufficient for this purpose. Hospital accepts no responsibility if the information is made available to any other person, INCLUDING THE PATIENT. Interpretation Summary * Name: DAVID WIGGINS Study Date: 12/09/2017 06:20 AM BP: 140/102 mmHg * Patient Location: C.2T\S\S240\S\1 HR: 61 * : 1960 (M/d/yyyy) Gender: Male Height: 73 in * Age: 57 yrs Ethnicity: AA Weight: 198 lb * Ordering Physician: Leroy Hernandez * Referring Physician: Self, Referred * Performed By: Mitra Horne RCS * * Reason For Study: CHEST PAIN * BSA: 2.1 m2 * -- Conclusions -- * The left ventricle is normal in size. * There is moderate concentric left ventricular hypertrophy. * Left ventricular systolic function is normal. * The left ventricular wall motion is normal. * Ejection Fraction = 60-65%. * There is no significant valvular disease Procedure Details * A complete two-dimensional transthoracic echocardiogram was performed (2D, M-mode, Doppler and color flow Doppler). Left Ventricle * The left ventricle is normal in size. * There is moderate concentric left ventricular hypertrophy. * Left ventricular systolic function is normal. * Ejection Fraction = 60-65%. * The left ventricular wall motion is normal. Right Ventricle * The right ventricle is normal in size and function. Atria * The left atrial size is normal. * Right atrial size is normal. * No ASD detected; PFO is not assessed. Mitral Valve * The mitral valve anatomy is normal. * There is no mitral valve stenosis. * There is trace mitral regurgitation. Tricuspid Valve * The tricuspid valve anatomy is normal. * There is no tricuspid stenosis. * There is trace tricuspid regurgitation. Aortic Valve * The aortic valve is trileaflet. * No hemodynamically significant valvular aortic stenosis. * No aortic regurgitation is present. Pulmonic Valve * The pulmonic valve is not well visualized. Great Vessels * The aortic root is normal size. Pericardium/Pleural * There is no pericardial effusion. Great Vessels * Normal inferior vena cava diameter and respiratory variation suggests normal central venous pressure. MMode 2D Measurements and Calculations IVSd 1.7 cm IVSs 2.4 cm LVIDd 4.7 cm LVIDs 3.5 cm LVPWd 1.4 cm LVPWs 1.3 cm IVS/LVPW 1.2 FS 25.3 % EDV(Teich) 104.5 ml ESV(Teich) 52.3 ml EF(Teich) 50.0 % EDV(cubed) 106.6 ml ESV(cubed) 44.3 ml EF(cubed) 58.4 % % IVS thick 37.4 % % LVPW thick -4.87 % LV mass(C)d 316.2 grams LV mass(C)dI 147.6 grams/m\S\2 LV mass(C)s 279.1 grams LV mass(C)sI 130.3 grams/m\S\2 SV(Teich) 52.2 ml SI(Teich) 24.4 ml/m\S\2 SV(cubed) 62.2 ml SI(cubed) 29.0 ml/m\S\2 Ao root diam 3.9 cm Ao root area 11.7 cm\S\2 ACS 2.6 cm LA dimension 3.0 cm LA/Ao 0.76 LVOT diam 2.0 cm LVOT area 3.1 cm\S\2 LVAd ap4 29.6 cm\S\2 LVLd ap4 7.5 cm EDV(MOD-sp4) 93.8 ml EDV(sp4-el) 99.7 ml LVAs ap4 20.2 cm\S\2 LVLs ap4 6.2 cm ESV(MOD-sp4) 54.0 ml ESV(sp4-el) 56.0 ml EF(MOD-sp4) 42.4 % EF(sp4-el) 43.8 % LVAd ap2 30.3 cm\S\2 LVLd ap2 7.5 cm EDV(MOD-sp2) 103.1 ml EDV(sp2-el) 104.7 ml LVAs ap2 22.3 cm\S\2 LVLs ap2 6.8 cm ESV(MOD-sp2) 59.8 ml ESV(sp2-el) 62.7 ml EF(MOD-sp2) 42.0 % EF(sp2-el) 40.1 % LVLd %diff 0 % EDV(MOD-bp) 98.8 ml LVLs %diff 8.4 % ESV(MOD-bp) 59.2 ml EF(MOD-bp) 40.1 % SV(MOD-sp4) 39.8 ml SI(MOD-sp4) 18.6 ml/m\S\2 SV(MOD-sp2) 43.3 ml SI(MOD-sp2) 20.2 ml/m\S\2 SV(MOD-bp) 39.6 ml SI(MOD-bp) 18.5 ml/m\S\2 SV(sp4-el) 43.6 ml SI(sp4-el) 20.4 ml/m\S\2 SV(sp2-el) 42.0 ml SI(sp2-el) 19.6 ml/m\S\2 Doppler Measurements and Calculations MV E max saray 50.1 cm/sec MV A max saray 32.4 cm/sec MV E/A 1.6 MV dec time 0.35 sec PA V2 max 82.8 cm/sec PA max PG 2.7 mmHg PI max saray 149.3 cm/sec PI max PG 8.9 mmHg PI dec slope 103.3 cm/sec\S\2 PI P1/2t 423.1 msec
[2017-12-09] MEDS ORDERED: ASPIRIN 81 MG ECTAB PO SCH (09:00)
[2017-12-09] MEDS ORDERED: POTASSIUM CHLORIDE 10 MEQ TABCR PO ONE (09:45)
[2017-12-09 11:50] VITALS: BP 124/72; PULSE 74; TEMP 36.8; O2SAT 95
--- NOTE | 2017-12-09 12:20 | CARDIOLOGY CONSULTATION ---
DATE OF CONSULTATION: 12/09/2017 REFERRING PHYSICIAN: Leroy Hernandez MD. INDICATIONS: Supraventricular tachycardia, rapid ventricular response, associated chest discomfort. HISTORY OF PRESENT ILLNESS: The patient is a 57-year-old male with no prior history of a cardiac disease by his own description and generally has been healthy, who last evening, 1 hour after sexual intercourse, developed sudden onset of a sensation of heart pressure in chest with mild shortness of breath. Symptoms initially eased and then returned. He was brought to the Emergency Room where initial EKG demonstrated narrow complex tachycardia, very rapid ventricular response, rates into the 220s, which resolved with the Valsalva maneuver. He has had no further recurrence since admission. Notes no history of hypertension, diabetes mellitus, TIA, or stroke. Notes no history of rheumatic fever, scarlet fever, or heart murmur. Generally is physically active with good tolerance. Notes no exertional chest pain or discomfort. Notes no signs or symptoms of edema. Notes no fevers, chills, or sweats. He has no family history of coronary disease though he did not have a family history of irregular heart rhythms. Appetite and weight have been generally stable. He has had significant travel recently, though CT scan of the chest revealed no evidence of pulmonary embolus. He is referred now for further assessment. EKG post conversion to sinus rhythm reveals normal tracing. Echocardiogram this morning demonstrates mild to moderate left ventricular hypertrophy with normal left ventricular systolic function and no valvular disease. ALLERGIES: None. MEDICATIONS PRIOR TO HOSPITALIZATION: None other than occasional fish oil, coenzyme Q tablet, and multivitamins. PAST SURGICAL HISTORY: Notable only for repair of her arm fracture. FAMILY HISTORY: As described notable for history of irregular heart rhythms but no significant coronary disease. SOCIAL HISTORY: The patient works as a musician. He is a nonsmoker. He does drink occasional alcoholic beverages, and per review of records, occasional marijuana usage though denies amphetamines or street drugs otherwise, notes no cocaine use. PHYSICAL EXAMINATION: VITAL SIGNS: Heart rate 69, blood pressure is 120/74, and O2 saturation is 98% on room air. HEENT: Normocephalic and atraumatic. Nares are without discharge. Throat is clear. NECK: Supple, without thyromegaly, lymphadenopathy, JVD, or bruit. RESPIRATORY: Lungs are clear to auscultation. CARDIOVASCULAR: Regular, with normal S1 and S2. There is no murmur, gallop, or rub. GASTROINTESTINAL: Abdomen is soft and nontender. EXTREMITIES: Without cyanosis or clubbing. There is no peripheral edema. There are intact distal pulses. Distal pulses are 2+/4. There is no brachial femoral delay. NEUROLOGIC: The patient is intact and answering questions appropriately. DATA: EKG on presentation demonstrated narrow complex tachycardia, very rapid ventricular response, rate 218, with strain pattern. EKG this morning demonstrates sinus rhythm with normal tracing, rate 64. Echocardiogram demonstrates as described moderate left ventricular hypertrophy, no valvular disease, preserved ejection fraction, EF 60%-65%. LABORATORY STUDIES: Sodium is 141, potassium is 3.6, chloride is 110, bicarbonate is 27, BUN is 11, creatinine 0.8. TSH is 1.26. Troponin is negative. Cholesterol was 151, with an LDL of 73, and an HDL of 67, on no therapies. Toxicology screen was negative for amphetamines or cocaine. IMPRESSION: A 57-year-old male presents with narrow complex tachycardia with associated symptoms of chest tightness and pressure, with very rapid ventricular response. Rhythm did respond to Valsalva maneuver. He has had no further recurrences. Notes no clinical history of prior events. The rates are significant on initial presentation enough to likely warrant treatment and further evaluation. RECOMMENDATIONS: Discussed with patient. Will initiate Toprol-XL 25 mg per day for rhythm control. Would recommend EP followup post hospital discharge, will make arrangements for such. The patient was ambulatory to be discharged to home. First dose of Toprol ordered for this morning. The patient to return with any recurrence of tachyarrhythmias. Full discussion administered. Findings do not suggest an acute coronary or ischemic event despite chest pressure.
--- NOTE | 2017-12-09 12:20 | Progress Note ---
Medicine Progress Note Date & Time of Visit: Dec 09, 2017 at 12:04. Subjective Pt was seen and examined Lying in bed comfortable with no distress Pt said that he feels fine Denies any chest pain, palpitation, dizziness and SOB Objective Last 8 Hrs Date Time Temp Pulse Resp B/P (MAP) Pulse Ox O2 Delivery O2 Flow Rate FiO2 12/09/17 11:50 36.8 74 18 124/72 (89) 95 12/09/17 08:00 Room Air 12/09/17 07:08 36.7 69 18 121/74 (90) 98 Room Air Physical Exam: General- No acute distress Head- atraumatic Eyes- PERRL, EOMI ENT- oropharynx clear Neck- supple, no JVD Lungs- clear to auscultation Heart- regular rhythm; no murmur Abdomen- normal bowel sounds, soft Extremities- no calf tenderness Neuro- alert, oriented x 3; PERRL, EOMI; no facial palsy Skin- warm & dry Laboratory Results: Last 24 Hours Test 12/08/17 15:40 12/08/17 15:45 12/08/17 15:47 12/08/17 21:24 White Blood Count 7.21 K/uL Red Blood Count 4.69 M/uL Hemoglobin 14.2 g/dL Hematocrit 41.4 % Mean Corpuscular Volume 88.3 fL Mean Corpuscular Hemoglobin 30.3 pg Mean Corpuscular Hemoglobin Concent 34.3 g/dl Platelet Count 335 K/uL Mean Platelet Volume 10.1 fL Neutrophils (%) (Auto) 44.6 % Lymphocytes (%) (Auto) 44.1 % Monocytes (%) (Auto) 9.7 % Eosinophils (%) (Auto) 1.4 % Basophils (%) (Auto) 0.1 % Neutrophils # (Auto) 3.21 K/uL Lymphocytes # (Auto) 3.18 K/uL Monocytes # (Auto) 0.70 K/uL Eosinophils # (Auto) 0.10 K/uL Basophils # (Auto) 0.01 K/uL RDW Standard Deviation 39.8 fL RDW Coefficient of Variation 12.5 % Immature Granulocyte % (Auto) 0.1 % Immature Granulocyte # (Auto) 0.01 K/uL Prothrombin Time 10.3 SECONDS Prothromb Time International Ratio 1.0 Activated Partial Thromboplast Time 27.3 SECONDS Partial Thromboplastin Ratio 1.1 Sodium Level 139 mmol/L Potassium Level 3.6 mmol/L Chloride Level 108 mmol/L Carbon Dioxide Level 23 mmol/L Anion Gap 8.0 mmol/L 17.0 mmol/L Blood Urea Nitrogen 14 mg/dl Creatinine 1.08 mg/dl Est Creatinine Clear Calc Drug Dose 86.3 ml/min Estimated GFR () 88.5 Estimated GFR (Non- 76.3 BUN/Creatinine Ratio 13.4 Random Glucose 102 mg/dl Calcium Level 8.6 mg/dl Magnesium Level 2.1 mg/dl Bedside Troponin I < 0.030 ng/ml Bedside Hemoglobin 14.6 g/dl Bedside Hematocrit 43 % Bedside Sodium 142 mEq/L Bedside Potassium 3.6 mEq/L Bedside Chloride 107 mEq/L Bedside Total CO2 22 mEq/l Bedside Blood Urea Nitrogen 15 mg/dl Bedside Creatinine 1.0 mg/dl Bedside Glucose (other) 110 mg/dl Bedside Ionized Calcium (Jemal) 1.11 mmol/l Troponin I 0.019 ng/ml Thyroid Stimulating Hormone (TSH) 1.260 uIu/ml Test 12/08/17 22:15 12/09/17 03:43 Urine Opiates Screen NEG Urine Methadone, Qualitative NEG Urine Barbiturates NEG Urine Phencyclidine (PCP) Level NEG Ur Amphetamine/Methamphetamine NEG MDMA (Ecstasy) Screen NEG Urine Benzodiazepines Screen NEG Urine Cocaine Metabolite NEG Urine Marijuana (THC) POS Sodium Level 141 mmol/L Potassium Level 3.6 mmol/L Chloride Level 110 mmol/L Carbon Dioxide Level 27 mmol/L Anion Gap 4.0 mmol/L Blood Urea Nitrogen 11 mg/dl Creatinine 0.80 mg/dl Est Creatinine Clear Calc Drug Dose 130.2 ml/min Estimated GFR () 115.7 Estimated GFR (Non- 99.9 BUN/Creatinine Ratio 14.1 Random Glucose 84 mg/dl Calcium Level 8.1 mg/dl Troponin I 0.016 ng/ml Triglycerides Level 56 mg/dl Cholesterol Level 151 mg/dl HDL Cholesterol 67 mg/dl LDL Cholesterol, Calculated 73 mg/dl VLDL Cholesterol, Calculated 11 mg/dl Cholesterol/HDL Ratio 2.3 Assessment & Plan Chest Pain Need to r/o ACS Received Aspirin prior arrival in the the ER EKG on admission showed SVT Repeat EKG showed no ischemic changes Troponin x3 negative Continue aspirin No arrhythmia on tele monitor Case discussed with Cardiology Starting on Toprol 25 mg daily OK from cardio standpoint to discharge home ECHO showed * The left ventricle is normal in size. * There is moderate concentric left ventricular hypertrophy. * Left ventricular systolic function is normal. * The left ventricular wall motion is normal. * Ejection Fraction = 60-65%. * There is no significant valvular disease SVT HR on admission 218 Broke with Valsalva maneuver HR control TSH and electrolytes wnl No arrhythmia on tele Will need to follow up with cardiology for electrophysiology studies Continue Toprol 25 mg daily Lung Nodule CTA chest showed a 7 mm pathologically indeterminant but low suspicion pleural- based nodule in the right middle lobe Former smoker Will need follow up CT chest as per guideline Marijuana abuse Counseling on marijuana cessation DVT px on heparin subq CODE STATUS FULL CODE DISPOSITION Will discharge home today Consultants: Cardio Current Inpatient Medications: Current Inpatient Medications Medications (Trade) Dose Ordered Sig/Álvaro Route Start Time Stop Time Status Last Admin Dose Admin Ioversol (Optiray 320) 100 ml UD PRN IV 12/08/17 16:00 12/12/17 15:59 Acetaminophen (Tylenol Tab) 650 mg Q4H PRN PO 12/08/17 17:45 01/07/18 17:44 Nitroglycerin (Nitrostat Tab) 0.4 mg UD PRN SL 12/08/17 17:45 01/07/18 17:44 Aspirin (Ecotrin Tab) 81 mg QAM PO 12/09/17 09:00 01/08/18 08:59 12/09/17 08:14 81 MG Miscellaneous (Iv Fluids Completed) 1 ea PRN PRN N/A 12/08/17 18:30 12/08/18 18:29 Heparin Sodium (Porcine) (Heparin Sq 5000 Unit/0.5ml) 5,000 unit Q8 SQ 12/08/17 22:00 01/07/18 21:59 Metoprolol Succinate (Toprol Xl Tab) 25 mg QAM PO 12/10/17 09:00 01/09/18 08:59 12/09/17 09:56 25 MG
[2017-12-09] MEDS ORDERED: TPRSR25 PO (12:21)
[2017-12-09] MEDS ORDERED: ASPI-461 PO (12:21)
--- NOTE | 2017-12-09 12:26 | Discharge Instructions ---
Discharge Instructions Date of Service Dec 09, 2017. Admission Reason for Admission: Chest Pain Discharge Discharge Diagnosis / Problem: Chest pain, Supraventricular tachycardia Discharge Goals Goal(s): Decrease discomfort, Improve function, Improve disease control Activity Recommendations Activity Limitations: resume your previous activity . Instructions / Follow-Up Instructions / Follow-Up Call to schedule a follow up appointment with your primary care provider at the [facility] within 1 week Follow up with cardiology Dr. [facility]un at the [facility] ([facility]) or with the [facility] cardiology Your physician will get a repeat CT chest for the lung nodule between 6 to 12 months. Current Hospital Diet Patient's current hospital diet: AHA Diet (Heart Healthy) Discharge Diet Recommended Diet: AHA Diet (Heart Healthy) Pending Studies Studies pending at discharge: no Laboratory Results Lipid Panel Test 12/09/17 03:43 Range/Units Triglycerides Level 56 0-150 mg/dl Cholesterol Level 151 0-200 mg/dl HDL Cholesterol 67 mg/dl Cholesterol/HDL Ratio 2.3 LDL Cholesterol, Calculated 73 mg/dl Medical Emergencies . Who to Call and When: Medical Emergencies: If at any time you feel your situation is an emergency, please call 911 immediately. . Non-Emergent Contact Non-Emergency issues call your: Primary Care Provider Call Non-Emergent contact if: you have any medication questions . . "Provider Documentation" section prepared by Leroy Hernandez. .
[2017-12-09 12:34] VITALS: BP 124/72; PULSE 74; TEMP 36.8; O2SAT 95
--- NOTE | 2017-12-10 08:56 | Discharge Summary ---
Discharge Summary Date of Service Dec 10, 2017. Discharge Summary Admission Date: Dec 08, 2017 at 17:54 Discharge Date: Dec 09, 2017 Discharge Disposition: Home Principal Diagnosis: CHEST PAIN Secondary Diagnoses/Problems: SVT Lung Nodule Marijuana abuse Procedures: CT ANGIOGRAM OF THE CHEST CLINICAL HISTORY: Atypical chest pain. COMPARISON STUDY: No priors. TECHNIQUE: Following the IV administration of 90 cc of Optiray 320, CT angiogram of the chest was performed from the upper abdomen to the thoracic inlet utilizing the pulmonary embolus protocol. Images are reviewed in the axial, sagittal, and coronal planes. 3-D MIPS images are created and assessed. IV contrast was administered without complication. A dose lowering technique was utilized adhering to the principles of ALARA. CT DOSE: 584.17 mGy.cm FINDINGS: Thyroid: Imaged portions of the thyroid gland are normal in size and attenuation. Thoracic aorta: The thoracic aorta is normal in caliber and demonstrates standard 3-vessel arch anatomy. No dissection is seen. Pulmonary vasculature: The pulmonary trunk is normal in caliber. There are no filling defects identified in main, lobar, or segmental pulmonary branches to suggest pulmonary embolus. Heart: The heart is normal in size and without pericardial effusion. The coronary arteries are densely calcified. Lungs and pleural spaces: Evaluation of the lung parenchyma is modestly degraded by motion artifact. Mild emphysematous change is seen at the lung apices. No airspace consolidation or pleural effusion is identified. Mild diffuse peribronchial thickening suggests reactive airway disease. The trachea and central airways are clear. There is a 7 mm pleural-based nodule in the right middle lobe along the minor fissure seen on image #132. Mediastinum: There is no mediastinal lymphadenopathy. Janie: Clear. Axillae: There is no axillary lymphadenopathy. Upper abdomen: Partially visualized upper abdominal viscera is within normal limits. Skeletal structures: No lytic or blastic bony lesions are seen. Numerous mild compression deformities are noted throughout the thoracic spine. IMPRESSION: 1. There is no evidence of pulmonary embolus in the main, lobar, or segmental pulmonary arteries. 2. Mild emphysema. 3. There is no airspace consolidation or pleural effusion. 4. Mild diffuse peribronchial thickening suggests reactive air disease. Clinical correlation will be required. 5. There is a 7 mm pathologically indeterminant but low suspicion pleural-based nodule in the right middle lobe along the minor fissure. This can be followed as per the Fleischner criteria. See below. 6. The coronary arteries are densely calcified. 7. Additional findings as above. Please refer to below summary of Fleischner criteria recommendations for follow-up of incidental CT nodules (Martell Lugo, Guidelines for management of small pulmonary nodules detected on CT scans: A statement from the Fleischner Society, Radiology 237: [phone].) SOLID NODULES Solitary nodule size: <6 mm * low risk patients: no follow-up needed * high risk patients: optional CT at 12 months Solitary nodule size: 6-8 mm * low risk patients: follow-up at 6-12 months, then consider further follow-up at 18-24 months * high risk patients: initial follow-up CT at 6-12 months and then at 18-24 months if no change Solitary nodule size: >8 mm * either low or high risk patients - consider follow-up CT at 3 months, and/or CT-PET, and/or biopsy Multiple nodules size: <6 mm * low risk patients: no routine follow-up * high risk patients: optional CT at 12 months Multiple nodules size: 6-8 mm * low risk patients: follow-up at 3-6 months, then consider further follow-up at 18-24 months * high risk patients: follow-up at 3-6 months, then at 18-24 months if no change Multiple nodules size: >8 mm * low risk patients: follow-up at 3-6 months, then consider further follow-up at 18-24 months * high risk patients: follow-up at 3-6 months, then at 18-24 months if no change Note: newly detected indeterminate nodule in persons 35 years of age or older. * low risk patients: minimal or absent history of smoking and/or other known risk factors * high risk patients: history of smoking or of other known risk factors (e.g. first degree relative with lung cancer, or exposure to asbestos, radon, uranium) * if a nodule up to 8 mm is partly solid or is ground glass further follow-up is required after 24 months to exclude possible slow growing adenocarcinoma (LILY) SUBSOLID NODULES Solitary pure ground-glass nodule * nodule size <6 mm - no CT follow-up required * nodule size >=6 mm - follow-up CT at 6-12 months, then every 2 years until 5 years Solitary part-solid nodule * nodule size <6 mm - no CT follow-up required * nodule size >=6 mm - follow-up CT at 3-6 months. If unchanged, and solid component remains <6 mm, then annual follow-up for 5 years Multiple subsolid nodules * nodule size <6 mm - follow-up CT at 3-6 months, consider further follow-up at 2 and 4 years if stable * nodule size >=6 mm - follow-up CT at 3-6 months, subsequent management based on the most suspicious nodule(s) Electronically signed by: Sedrick Salomon M.D. 12/08/2017 4:39 PM Dictated Date/Time: 12/08/2017 4:33 PM ECHO Interpretation Summary * Name: DAVID WIGGINS Study Date: 12/09/2017 06:20 AM BP: 140/102 mmHg * Patient Location: [facility]\\\\40\\[id number]\\[id number] HR: 61 * : 1960 (M/d/yyyy) Gender: Male Height: 73 in * Age: 57 yrs Ethnicity: AA Weight: 198 lb * Ordering Physician: Leroy Hernandez * Referring Physician: Self, Referred * Performed By: Mitra Horne RCS * * Reason For Study: CHEST PAIN * BSA: 2.1 m2 * -- Conclusions -- * The left ventricle is normal in size. * There is moderate concentric left ventricular hypertrophy. * Left ventricular systolic function is normal. * The left ventricular wall motion is normal. * Ejection Fraction = 60-65%. * There is no significant valvular disease Procedure Details * A complete two-dimensional transthoracic echocardiogram was performed (2D, M- mode, Doppler and color flow Doppler). Left Ventricle * The left ventricle is normal in size. * There is moderate concentric left ventricular hypertrophy. * Left ventricular systolic function is normal. * Ejection Fraction = 60-65%. * The left ventricular wall motion is normal. Right Ventricle * The right ventricle is normal in size and function. Atria * The left atrial size is normal. * Right atrial size is normal. * No ASD detected; PFO is not assessed. Mitral Valve * The mitral valve anatomy is normal. * There is no mitral valve stenosis. * There is trace mitral regurgitation. Tricuspid Valve * The tricuspid valve anatomy is normal. * There is no tricuspid stenosis. * There is trace tricuspid regurgitation. Aortic Valve * The aortic valve is trileaflet. * No hemodynamically significant valvular aortic stenosis. * No aortic regurgitation is present. Pulmonic Valve * The pulmonic valve is not well visualized. Great Vessels * The aortic root is normal size. Pericardium/Pleural * There is no pericardial effusion. Great Vessels * Normal inferior vena cava diameter and respiratory variation suggests normal central venous pressure. Consultations: Cardio Medication Reconciliation New Medications: Aspirin (Aspirin) 81 Mg Tab 81 MG PO QAM for 30 Days, #30 TAB Metoprolol Succinate (Metoprolol Succinate ER) 25 Mg Tabcr 25 MG PO QAM for 30 Days Continued Medications: Coenzyme Q10 (Ubidecarenone) (Coq10) 200 Mg Cap 1 CAP PO DAILY Fish Oil (Keyes-3) 1 Ea Cap 1 CAP PO DAILY, CAP Multivitamins/Minerals (Mvi With Minerals) Tab 1 TAB PO DAILY, TAB Admission Information HPI (per Admitting provider): 57-year-old male with no significant past medical history presented to the ER for chest pain. Patient said chest pain occurs 1 hour after he had sexual intercourse with his partner. He said he was sitting on the sofa when the chest pain occurred. He said he felt someone was sitting in his chest. Described the pain has 8 out of 10, nonradiating, constant associated with shortness of breath. His partner gave him aspirin and he drove to the ER. he denies any similar episode in the past. He recently had a trip to [place] Pt said that he is very active and he plays instrument in a band. When presented to the ER his heart rate was in the 220s and EKG show SVT. SVT broke after Valsalva maneuver. Denies any substance use or illicit drug. Currently patient denies any chest pain, palpitation, dizziness, shortness of breath. Physical Exam (per Admitting): General Appearance: WD/WN, no apparent distress Head: normocephalic, atraumatic Eyes: PERRL, EOMI ENT: hearing grossly normal Neck: no JVD, trachea midline Respiratory/Chest: lungs clear, no respiratory distress, no accessory muscle use Cardiovascular: no JVD, no murmur, + tachycardia Abdomen/GI: normal bowel sounds, soft Back: no CVA tenderness Extremities/Musculoskelatal: no calf tenderness Neurologic/Psych: no motor/sensory deficits, alert, oriented x 3 Skin: warm/dry, no rash Hospital Course Chest Pain Need to r/o ACS Received Aspirin prior arrival in the the ER EKG on admission showed SVT Repeat EKG showed no ischemic changes Troponin x3 negative Continue aspirin No arrhythmia on tele monitor Case discussed with Cardiology Starting on Toprol 25 mg daily OK from cardio standpoint to discharge home ECHO showed * The left ventricle is normal in size. * There is moderate concentric left ventricular hypertrophy. * Left ventricular systolic function is normal. * The left ventricular wall motion is normal. * Ejection Fraction = 60-65%. * There is no significant valvular disease SVT HR on admission 218 Broke with Valsalva maneuver HR control TSH and electrolytes wnl No arrhythmia on tele Will need to follow up with cardiology for electrophysiology studies Continue Toprol 25 mg daily Lung Nodule CTA chest showed a 7 mm pathologically indeterminant but low suspicion pleural- based nodule in the right middle lobe Former smoker Will need follow up CT chest as per guideline Marijuana abuse Counseling on marijuana cessation DVT px on heparin subq CODE STATUS FULL CODE DISPOSITION Will discharge home today Total time spent on discharge = 35 MINUTES This includes examination of the patient, discharge planning, medication reconciliation, and communication with other providers. Discharge Instructions Discharge Instructions Date of Service Dec 09, 2017. Admission Reason for Admission: Chest Pain Discharge Discharge Diagnosis / Problem: Chest pain, Supraventricular tachycardia Discharge Goals Goal(s): Decrease discomfort, Improve function, Improve disease control Activity Recommendations Activity Limitations: resume your previous activity . Instructions / Follow-Up Instructions / Follow-Up Call to schedule a follow up appointment with your primary care provider at the [facility] within 1 week Follow up with cardiology Dr. Yun at the [facility] ([facility]) or with the [facility] cardiology Your physician will get a repeat CT chest for the lung nodule between 6 to 12 months. Current Hospital Diet Patient's current hospital diet: AHA Diet (Heart Healthy) Discharge Diet Recommended Diet: AHA Diet (Heart Healthy) Pending Studies Studies pending at discharge: no Laboratory Results Lipid Panel Test 12/09/17 03:43 Range/Units Triglycerides Level 56 0-150 mg/dl Cholesterol Level 151 0-200 mg/dl HDL Cholesterol 67 mg/dl Cholesterol/HDL Ratio 2.3 LDL Cholesterol, Calculated 73 mg/dl Medical Emergencies . Who to Call and When: Medical Emergencies: If at any time you feel your situation is an emergency, please call 911 immediately. . Non-Emergent Contact Non-Emergency issues call your: Primary Care Provider Call Non-Emergent contact if: you have any medication questions . . "Provider Documentation" section prepared by Leroy Hernandez. .
[2017-12-10] MEDS ORDERED: METOPROLOL SUCC 25MG EXT REL TAB PO SCH (09:00)
== END 2017-12-09 12:46 | disposition home or self-care (01) ==
LOC: C.EDB 15:33 → C.2T 17:54 → ENRESERV 18:00
PROVIDERS: ADMIT Internal Medicine; ATTEND Internal Medicine
DX: R07.9 Chest pain, unspecified (principal); I47.1 Supraventricular tachycardia; R91.1 Solitary pulmonary nodule; F12.10 Cannabis abuse, uncomplicated; Z79.82 Long term (current) use of aspirin; Z79.899 Other long term (current) drug therapy; Z87.891 Personal history of nicotine dependence

== ENCOUNTER 2019-05-22 05:59 | Inpatient (IN) ==
--- NOTE | 2019-05-08 08:04 | PAT Medication Instructions ---
Medication Instructions Date of Service May 08, 2019 Home Medications metoprolol succinate 25 mg PO QAM Take morning of surgery With a small sip of water, OTHERWISE NOTHING TO EAT OR DRINK AFTER MIDNIGHT: metoprolol succinate 25 mg PO QAM Other Notes If you have any questions please call us at [phone] or [phone] or [phone] or [phone]
--- NOTE | 2019-05-08 09:15 | Anesthesiology Consultation ---
Date of Service May 08, 2019 Assessment & Plan (1) Encounter for pre-operative examination: Chart Review Chart Review: Acceptable Risk for Surgery and Patient seen in Pre Admission Testing Teaching & Discussion Instructed NPO after midnight before surgery, except medications with 15 cc of water. Medication instructions provided according to the PAT guidelines. History Surgery Operation Date: 05/22/19 07:30 Proposed Procedures p Robotic Assisted Laparoscopic Partial Nephrectomy of Left Renal Lesion - Jovanny Ybarra, DO Height/Weight Height: 6 ft 1 in Weight: 106.4 kg Allergies Allergy/AdvReac Type Severity Reaction Status Date / Time No Known Allergies Allergy Verified 04/30/19 14:16 Medications Home Medications Medication Instructions Recorded Confirmed Last Taken metoprolol succinate 25 mg PO QAM 04/30/19 04/30/19 04/30/19 Past Medical History Medical History History of supraventricular tachycardia Single episode ~1 yr ago, seen by cardio and started on BB, no issues since Left kidney mass Exercise / Class Metabolic Activity II 4-5 Yardwork/Stairs/Walk up hill (Denies CP or SOB with 1 FOS) Past Surgical History Surgical History History of colonoscopy History of surgical procedure on mouth Pt unsure of details Past Anesthesia History No Hx of Anesthesia Complications and No Family Hx of Anesthesia Complications History of PONV No Hx of PONV and No Hx of Motion Sickness Social History Smoking Status: Former smoker tobacco type: cigarettes Do You Dip or Chew Tobacco: No Smoking End Date: APPROX 30 YRS AGO Hx Alcohol Use: Yes Alcohol type: beer and hard liquor alcohol intake frequency: a few times a week Hx Substance Use: No substance use type: does not use Review of Systems Pt denies any recent chest pain, shortness of breath, palpitations, cough, fever or URI. Physical Exam Vital Signs BP: 111/82 P: 77bpm SPO2: 96% RA T: 97.9 F R: 16 ENMT Mouth: + dentition abnormality (missing one upper L cuspid); no dental restorations, no chipped teeth and no loose teeth Thyromental Distance: > or= 3.5 Finger Breadths (4) Mallampati Class: I Neck normal visual inspection; neck extension not limited Respiratory normal respiratory effort Auscultation: lungs clear to auscultation bilaterally Cardiovascular Rate/Rhythm: regular rate and regular rhythm Heart Sounds: no murmur Vessels: no carotid bruit Extremities: no edema Testing Laboratory Results 05/08/19 09:20 05/08/19 09:20 Urine Color Yellow 05/08/19 09:20 Urine Appearance Clear (Clear) 05/08/19 09:20 Urine pH 5.5 (4.5-7.5) 05/08/19 09:20 Ur Specific [place] 1.026 (1.000-1.030) 05/08/19 09:20 Urine Protein Negative (Negative) 05/08/19 09:20 Urine Glucose (UA) Negative (Negative) 05/08/19 09:20 Urine Ketones Negative (Negative) 05/08/19 09:20 Urine Nitrite Negative (Negative) 05/08/19 09:20 Ur Leukocyte Esterase Negative (Negative) 05/08/19 09:20 Blood Type A Positive 05/08/19 09:20 Antibody Screen NEGATIVE 05/08/19 09:20 Electrocardiogram Date: 02/10/19 Findings: + NSR @ (72bpm with sinus arrhythmia) Chest X-Ray Date: 04/16/19 Findings: + NAD Echocardiogram Date: 02/10/19 EF: 60% Left ventricular cavity size is normal and wall thickness is normal. Global systolic function is normal. Normal right ventricle size and systolic function. The aortic valve appears normal. Trivial tricuspid,pulmonic, and mitral regurgitation. Stress Test Date: 04/30/19 Type: exercise (ekg only) Negative for ischemia by EKG criteria.
[2019-05-08 11:35] LABS: Basophils # (auto) 0.01 K/uL (0-0.2); Basophils % (auto) 0.2 %; Eosinophils # (auto) 0.18 K/uL (0-0.5); Eosinophils % (auto) 3.8 %; Hematocrit (blood only) 39.9 % (42-52); Hemoglobin 13.1 g/dL (14.0-18.0); Immature Granulocytes # (auto) 0.02 K/uL (0.00-0.02); Immature Granulocytes % (auto) 0.4 %; Lymphocytes # (auto) 2.06 K/uL (1.2-3.4); Lymphocytes % (auto) 43.4 %; Mean Corpuscular Hemoglobin 29.7 pg (25-34); Mean Corpuscular Hgb Conc 32.8 g/dL (32-36); Mean Corpuscular Volume 90.5 fL (80-100); Mean Platelet Volume 10.7 fL (7.4-10.4); Monocytes # (auto) 0.42 K/uL (0.11-0.59); Monocytes % (auto) 8.8 %; Neutrophils # (auto) 2.06 K/uL (1.4-6.5); Neutrophils % (auto) 43.4 %; Platelet Count 290 K/uL (130-400); RDW Coefficient of Variation 12.6 % (11.5-14.5); RDW Standard Deviation 41.8 fL (36.4-46.3); Red Blood Count 4.41 M/uL (4.7-6.1); White Blood Count 4.75 K/uL (4.8-10.8)
[2019-05-08 11:36] LABS: Appearance Urine Clear (Clear); Bilirubin Urine Negative (Negative); Blood Urine Negative (Negative); Color Urine Yellow; Glucose Urine UA Negative (Negative); Ketones Urine Negative (Negative); Leukocyte Esterase Urine Negative (Negative); Nitrite Urine Negative (Negative); Protein Urine Negative (Negative); Specific Gravity Urine 1.026 (1.000-1.030); Urobilinogen Urine Negative (Negative); pH Urine 5.5 (4.5-7.5)
[2019-05-08 11:43] LABS: BUN Creatinine Ratio 11.1 (10-20); Creatinine Clr Calc Pharmacy 112.4 ml/min; Est GFR (African American) 106.6; Potassium 3.9 mmol/L (3.5-5.1)
[2019-05-22] MEDS ORDERED: LR 15ML/HR IV SCH (06:00)
[2019-05-22] MEDS ORDERED: CEFAZOLIN 2000MG 2,000 MG/15 ML SYR IV SCH (06:00)
[2019-05-22] MEDS ORDERED: NEOSTIGMINE METHYLSULFATE 5 MG/5 ML SYR ONE (06:54)
[2019-05-22] MEDS ORDERED: ONDANSETRON INJ 2 MG/ML 2 ML VIAL ONE ×2 (06:54→08:47)
[2019-05-22] MEDS ORDERED: PROPOFOL IV EMULSION 10 MG/ML 20 ML VIAL IV ONE (06:54)
[2019-05-22] MEDS ORDERED: DEXAMETHASONE SOD INJ 4 MG/ML VIAL ONE (06:54)
[2019-05-22] MEDS ORDERED: ROCURONIUM BROMIDE 10 MG/ML 5 ML VIAL ONE (06:54)
[2019-05-22] MEDS ORDERED: LIDOCAINE HCL 2% 2 ML VIAL/AMP(20MG/ML) INFIL ONE (06:54)
[2019-05-22] MEDS ORDERED: GLYCOPYRROLATE 0.2 MG/ML VIAL ONE (06:54)
[2019-05-22] MEDS ORDERED: MIDAZOLAM HCL 1 MG/ML 2ML VIAL ONE (06:55)
[2019-05-22] MEDS ORDERED: KETOROLAC 30 MG/ML VIAL ONE (06:55)
[2019-05-22] MEDS ORDERED: fentaNYL citrate 100 MCG/2 ML VIAL ONE (06:55)
[2019-05-22] MEDS ORDERED: KETAMINE HCL INJ 50 MG/ML 10 ML VIAL ONE (06:56)
[2019-05-22] MEDS ORDERED: ACETAMINOPHEN 1000 MG/100 ML IV IV ONE (07:05)
[2019-05-22] MEDS ORDERED: HYDROmorphone INJ 2 MG/ML SYR/VIAL ONE (07:11)
--- NOTE | 2019-05-22 07:25 | History & Physical Bridge Note ---
Date of Service May 22, 2019 History & Physical Bridge Note I have examined the patient, reviewed the History & Physical and in the interval since the performance of the History & Physical I have noted the following changes of clinical significance: no changes noted
[2019-05-22] MEDS ORDERED: BUPIVACAINE 0.5 % 5 MG/1 ML MPF 30ML VIAL ONE (07:29)
[2019-05-22] MEDS ORDERED: SURGICEL ABSORB HEMOSTAT 2IN X 14IN TOP ONE (08:51)
[2019-05-22] MEDS ORDERED: TISSEEL FIBRIN SEALANT 10ML TOP ONE (10:17)
[2019-05-22] MEDS ORDERED: FLOSEAL HEMOSTATIC MATRIX 10ML TOP ONE (10:21)
[2019-05-22] MEDS ORDERED: PHENYLEPHRINE 100MCG/ML 5ML SYR ONE ×2 (10:27→11:01)
[2019-05-22] MEDS ORDERED: PHENYLEPHRINE HCL 10 MG/ML VIAL ONE (10:27)
--- NOTE | 2019-05-22 11:31 | Post Operative Brief Note ---
[facility] Immediate Post Op with CF Date of Surgery May 22, 2019 Pre & Post Diagnosis Operation Date: 05/22/19 07:30 Pre-Op Diagnosis: Left Renal Lesion Post-Op Diagnosis: Left Renal Lesion I identified the patient and participated in the time-out.: Yes Procedure Operation Date: 05/22/19 07:30 Actual Procedures p Robotic-Assisted Laparoscopic Partial Nephrectomy of Left Renal Lesion(Left) - Jovanny Ybarra DO Surgeon Jovanny Ybarra II, DO Online Marketer Cinthia SCHMITT and MD Art Estimated Blood Loss 40 Findings Consistent with Post-Op Diagnosis Specimens Specimen Description: A. left renal mass Drains Moore Catheter and Rl-Farmer Drain Anesthesia Type General Complications none Disposition Disposition: Recovery Room Overlapping Procedure I was present for: the critical portions of procedure. I was immediately available: during the entire case. Back up surgeon: used during listed procedure.
[2019-05-22 11:58] LABS: Basophils # (auto) 0.01 K/uL (0-0.2); Basophils % (auto) 0.1 %; Eosinophils # (auto) 0.03 K/uL (0-0.5); Eosinophils % (auto) 0.2 %; Hematocrit (blood only) 37.4 % (42-52); Hemoglobin 11.8 g/dL (14.0-18.0); Immature Granulocytes # (auto) 0.04 K/uL (0.00-0.02); Immature Granulocytes % (auto) 0.3 %; Lymphocytes # (auto) 1.08 K/uL (1.2-3.4); Lymphocytes % (auto) 8.2 %; Mean Corpuscular Volume 91.9 fL (80-100); Mean Platelet Volume 9.3 fL (7.4-10.4); Monocytes # (auto) 0.42 K/uL (0.11-0.59); Monocytes % (auto) 3.2 %; Neutrophils # (auto) 11.54 K/uL (1.4-6.5); Platelet Count 247 K/uL (130-400); RDW Coefficient of Variation 12.4 % (11.5-14.5); RDW Standard Deviation 42.1 fL (36.4-46.3); Red Blood Count 4.07 M/uL (4.7-6.1); White Blood Count 13.12 K/uL (4.8-10.8)
[2019-05-22] MEDS ORDERED: ATROPINE SULFATE 0.1 MG/ML 10ML SYR IV PRN (12:07)
[2019-05-22] MEDS ORDERED: ePHEDrine sulfate 50 MG/ML AMP IV PRN (12:07)
[2019-05-22] MEDS ORDERED: PROMETHAZINE HCL 12.5 MG in SODIUM CHLORIDE 0.9% 50 ML IV PRN (12:07)
[2019-05-22] MEDS ORDERED: LABETALOL HCL IV 5 MG/ML 20ML IV PRN (12:07)
[2019-05-22] MEDS ORDERED: FLUMAZENIL 0.1 MG/1 ML 10 ML VIAL IV PRN (12:07)
[2019-05-22] MEDS ORDERED: HYDROmorphone INJ 1 MG/ML SYRINGE ONE (12:07)
[2019-05-22] MEDS ORDERED: NALOXONE HCL 0.4 MG/1 ML VIAL/CARP IV PRN (12:07)
[2019-05-22] MEDS ORDERED: ONDANSETRON INJ 2 MG/ML 2 ML VIAL IV PRN ×2 (12:07→13:49)
[2019-05-22] MEDS: HYDROmorphone INJ 1 MG/ML SYRINGE IV PRN ×2 (12:08→12:13)
[2019-05-22 12:15] LABS: BUN Creatinine Ratio 9.8 (10-20); Calcium 8.1 mg/dl (8.5-10.1); Creatinine Clr Calc Pharmacy 100.9 ml/min; Est GFR (African American) 91.9; Est GFR (Non-African American) 79.3; Potassium 4.1 mmol/L (3.5-5.1)
--- NOTE | 2019-05-22 12:31 | Anesthesiology Progress Note ---
Date of Service May 22, 2019 Anesthesia Post Procedure Vital Signs Vital Signs: Temp Pulse Pulse Resp BP Pulse Ox 05/22/19 12:20 36.4 C L 87 10 L 103/77 94 05/22/19 12:10 84 14 113/76 96 05/22/19 12:00 83 14 119/78 100 05/22/19 11:50 81 13 126/82 100 05/22/19 11:44 36.2 C L 87 20 125/77 98 05/22/19 06:21 36.4 C L 79 20 117/84 98 Pain Intensity Abdomen: Pain Intensity: 3 Transfer of Care Handoff Completed per policy Notes Mental Status: alert / awake / arousable Patient Amnestic to Procedure: Yes Nausea / Vomiting: adequately controlled Pain: adequately controlled Airway Patency, RR, SpO2: stable & adequate BP & HR: stable & adequate Hydration State: stable & adequate Anesthetic Complications: no major complications apparent
[2019-05-22 12:32] LABS: Mean Corpuscular Hgb Conc 31.6 g/dL (32-36)
--- NOTE | 2019-05-22 13:05 | Operative Report ---
PG Post Operative Report Pre & Post Diagnosis Operation Date: 05/22/19 07:30 Pre-Op Diagnosis: Left Renal Lesion Post-Op Diagnosis: Left Renal Lesion I identified the patient and participated in the time-out.: Yes Procedure Operation Date: 05/22/19 07:30 Actual Procedures p Robotic-Assisted Laparoscopic Partial Nephrectomy of Left Renal Lesion and ext ensive lysis of adhesions (Left) - Jovanny Ybarra, Surgeon Jovanny Ybarra, II, DO Manager [facility] & KESHIA Coronado and MD Art Estimated Blood Loss 40 Findings Consistent with Post-Op Diagnosis Lower pole renal mass on left. Severe adhesions throughout the upper left quadarant. Specimens Renal mass. Drains Moore catheter. KOLBY Drain. Anesthesia Type General Complications none Disposition Disposition: Recovery Room Indications Patient with enhancing left renal mass. Risk and benefits were discussed at length. Patient elected to undergo robotic assisted laparoscopic partial ne phrectomy. Description of Procedure The patient was brought to the operative suite and placed under general endotracheal intubation anesthesia in the supine position. The patient was transferred to the lateral position with the operative side up. At this point, the patient prepped and draped in the usual sterile fashion and a timeout was completed. Preoperative antibiotics of Ancef 2 grams had been given. EVA's and SCD's were placed on the patient's lower extremities. A catheter was placed using sterile technique. With the time out completed the patient was flexed and the skin was marked. The lateral camera port site was anesthetized. A small incision was made into the skin and subcutaneous tissues. A Varess needle was selected and placed. The needle was easily moved and it was irrigated and aspirated without any issues or concerns for placement. Insufflation commenced. Once insufflated, A camera port was placed. The cavity was insufflated to 12-15 mmHG. A laparoscopic camera was placed and the abdominal cavity inspected. No bleeding, injury, or other concerning features were noted. At this point, the skin was marked for port placement and 8mm working ports were placed. The skin was anesthetized down to fascia and an approx 1cm incision was made to place the 2 x 8mm ports. Two certified registered dental assistant ports were also placed in similar fashion under direct visualization. The robot was positioned and docked. The camera was placed and all trocars were positioned under direct visualization. Charu Sunshine and Maida Coronado were integral in port placement, camera utilization, and docking procedure. She remained in sterile attire and then proceeded to assist the remainder of the case. Dr. Miles Cordova was readily available for assistance during ordoñez portions of the proceeding procedure. Dr. Cordova assumed the psychological assistant role for the major portion of mass removal, vessel clamping, and closure of the kidney. At this point, I transitioned to the robotic console. Severe adhesions were discovered with the omentum adhered to the tissues around the spleen. Great care was teken to lyse these adhesions and retract them from the field. With this completed the colon was exposed and further adhesions were then freed. The colon was mobilized medially to expose the retroperitoneum and the area assessed. Additional Adhesions distally were freed to allow mobilization. A small amount of adhesions were noted from the colon and were freed. These were dissected with blunt technique. Cautery was used to assist dissection and control bleeding. The retroperitoneal fat was assessed. The ureter and gonadal vein were identified. The ureter was isolated and dissection was taken superiorly. This was followed to the renal pelvis. The Renal Artery and Vein were then cleaned and exposed. Clamp placement was assessed and good access was achieved. The perirenal fat anterior to the kidney was then dissected. The mass and surrounding tissues were exposed. The kidney was then further mobilized. The ultrasound probe was placed and the mass further examined. The edges were marked. The Vessels were assessed a final time. 2 x Bulldog clamps were placed on the artery and 1 x Bulldog clamp on the vein. The kidney appropriately blanched. The previously marked margins were used to start the incision into the kidney. The mass was completely excised without evidence of penetrating into the capsule of the mass. The base of resection bed was assessed and small vessels were cauterized. The collecting system did appear to be opened in a small area. A barbed suture was selected and the nephrotomy closed. Care was taken to close the collecting system opening. 3-0 Vicryl sutures were then used to close the edges of the elliptical opening. A total of 3 vicryl sutures were used to close and bolster the edges. At this point, the bulldog clamps were removed. Warm ischemia time, in total, was 16 minutes. The kidney was full assessed after removal of clamps. No bleeding or other major areas of concern. Weck and Hemolock clips were used to bolster and tightened to approximate the edges. Surgicel hemostatic agent sheets were placed under the liver and on the incised edge. Hemostatic agents were also placed. Hemostatic agent was also placed on the vessels. No major bleeding or other issues. Gerota's tissues were replaced utilizing clips to cover the area. The excised mass was placed in an endocatch bag for removal. The entire dissection space was inspected one final time. No bleeding or injuries or areas of concern were noted. No tumor or other concerning features were noted. A KOLBY drain was placed through the lateral camera port and secured with a 2-0 Silk. At this point, the robot was undocked and moved away from the patient. The port sites were all assessed laparoscopically. The endoscopic bag was moved into the lower certified registered dental assistant port. The superior certified registered dental assistant 12 mm port sites was closed with the Kaleb Robertson device. The other ports were assessed and no issues observed. The inferior certified registered dental assistant port incision was opened further exposing fascia which was then opened in order to removed the mass within the bag. A running 1-0 Vicryl suture was used to close fascia. The skin at each site was closed with a running Monocryl suture. The area was cleaned and glue placed on each incision. The patient was cleaned and bandaged. The patient was moved back into the supine position The patient was cleaned, aroused from anesthesia, and transferred to the pacu in stable condition having tolerated the procedure well with no complications. I was present and participated in all aspects of the procedure. Miles Cordova MD was integral in the major portion of the procedure as above. Charu Sunshine & KESHIA Loya were critical in the portions as mentioned above. Will plan to observe postoperatively and monitor. Moore to be removed in the morning. I attest to the content of the Intraoperative Record and any orders documented therein. Any exceptions are noted below.
[2019-05-22] MEDS ORDERED: HYDROmorphone INJ 0.5 MG/0.5 ML SYR IV PRN (13:49)
[2019-05-22] MEDS ORDERED: HYDROmorphone INJ 1 MG/ML SYRINGE IV PRN (13:49)
[2019-05-22] MEDS ORDERED: OXYCODONE HCL IR 5 MG TAB (IMMEDIATE RELEASE) PO PRN (13:49)
[2019-05-22] MEDS: LACTATED RINGER'S 1,000 ML IV SCH ×2 (14:04→21:11)
[2019-05-22] MEDS: ACETAMINOPHEN 1,000 MG/100 ML VIAL IV SCH (16:20)
[2019-05-22] MEDS: CEFAZOLIN 2000MG 2,000 MG/15 ML SYR IV SCH (16:20)
[2019-05-23] MEDS: CEFAZOLIN 2000MG 2,000 MG/15 ML SYR IV SCH (00:05)
[2019-05-23] MEDS: ACETAMINOPHEN 1,000 MG/100 ML VIAL IV SCH ×3 (00:13→16:55)
[2019-05-23] MEDS: LACTATED RINGER'S 1,000 ML IV SCH (04:52)
[2019-05-23 06:44] LABS: Eosinophils # (auto) 0.01 K/uL (0-0.5); Eosinophils % (auto) 0.1 %; Hematocrit (blood only) 34.5 % (42-52); Hemoglobin 11.1 g/dL (14.0-18.0); Immature Granulocytes # (auto) 0.02 K/uL (0.00-0.02); Immature Granulocytes % (auto) 0.2 %; Lymphocytes # (auto) 1.67 K/uL (1.2-3.4); Mean Corpuscular Hemoglobin 29.3 pg (25-34); Mean Corpuscular Hgb Conc 32.2 g/dL (32-36); Mean Platelet Volume 9.6 fL (7.4-10.4); Monocytes # (auto) 0.84 K/uL (0.11-0.59); Neutrophils # (auto) 5.82 K/uL (1.4-6.5); Neutrophils % (auto) 69.7 %; Platelet Count 210 K/uL (130-400); RDW Coefficient of Variation 12.4 % (11.5-14.5); RDW Standard Deviation 41.2 fL (36.4-46.3); Red Blood Count 3.79 M/uL (4.7-6.1); White Blood Count 8.36 K/uL (4.8-10.8)
[2019-05-23 07:18] LABS: BUN Creatinine Ratio 9.4 (10-20); Calcium 8.5 mg/dl (8.5-10.1); Creatinine Clr Calc Pharmacy 97.2 ml/min; Est GFR (African American) 86.9; Est GFR (Non-African American) 74.9; Potassium 3.8 mmol/L (3.5-5.1)
[2019-05-23] MEDS ORDERED: METOPROLOL SUCC 25MG EXT REL TAB PO SCH (09:00)
--- NOTE | 2019-05-23 09:48 | Urology Progress Note ---
Date of Service May 23, 2019 Assessment & Plan (1) Renal mass: 58 yo M POD #1 s/p left partial nephrectomy with Dr. Ybarra secondary to renal mass. - Advance diet - D/C raymundo - Monitor drain output - OOB today Consider discharge this afternoon if continues to progress. Plan to d/c KOLBY drain just prior to discharge. Subjective 58 yo M POD #1 s/p left partial nephrectomy with Dr. Yabrra secondary to renal mass. Cr 1.09 Hgb 11.1 KOLBY output minimal Laying in bed watching tv. Some pain overnight. Pain is controlled this morning. Has been moving around, but not ambulating yet. Tolerating clear fluids. No N/V. Raymundo in place draining clear yellow urine. Review of Systems Constitutional: no fever and no chills Gastrointestinal: no nausea and no vomiting Genitourinary: + as per Subjective / HPI Physical Exam Physical Exam: NAD AOx3 Normal respiratory effort Abd soft, nondistended; KOLBY with minimal sanguinous drainage Incisions c/d/i, mild ecchymosis, no hematoma Raymundo intact, draining clear yellow urine No pedal edema Results & Data Vital Signs (Past 12 Hours) Vital Signs Temp Pulse Pulse Resp BP Pulse Ox 05/23/19 07:00 37.0 C 93 H 90 18 133/85 96 05/23/19 03:34 37 C 99 H 18 140/68 94 05/23/19 00:22 100 H 05/22/19 23:00 37 C 96 H 16 125/75 96 PG Care Time/CCT Total # of Minutes Spent Total Time Spent with Patient: Total time spent is greater than 50% in coordination of care (as documented) at patient's floor/unit and/or counseling patient:
[2019-05-23] MEDS: OXYCODONE HCL IR 5 MG TAB (IMMEDIATE RELEASE) PO PRN ×2 (11:32→15:51)
--- NOTE | 2019-05-27 06:59 | Discharge Summary ---
Date of Service May 27, 2019 Admission HPI Per Admitting Provider See H&P Admission Exam Per Admitting Provider See H&P Principal Diagnosis Renal Mass Discharge Exam General: Alert in no acute distress. HEENT: Normocephalic Atraumatic. Inspection normal. Cranial Nerves 2-12 Grossly intact. Normal inspection of face. Normal inspection of neck. Psychologic: Normal affect. Respiratory: Nonlabored. No use of accessory muscles. No tachypnea or dyspnea. Cardiovascular: No tachycardia Skin: Cook and Dry. No rashes or visible lesions. Extremities/Lymphatics: No edema Abdomen: Mild distended. Scant fluid in KOLBY. Incision CDI Discharge Data Allergies Allergy/AdvReac Type Severity Reaction Status Date / Time No Known Allergies Allergy Verified 05/22/19 06:20 Procedures Performed Operation Date: 05/22/19 07:30 Actual Procedures p Robotic-Assisted Laparoscopic Partial Nephrectomy of Left Renal Lesion(Left) - Jovanny Ybarra DO Hospital Course (1) Renal mass: 58 yo M POD #1 s/p left partial nephrectomy with Dr. Ybarra secondary to renal mass. - Advance diet - D/C raymundo - Monitor drain output - OOB today Consider discharge this afternoon if continues to progress. Plan to d/c KOLBY drain just prior to discharge. Total Time Total Time Spent Total Time Spent (In Minutes): 15 Total Time Includes: Examination of the Patient, Discharge Planning, Medication Reconciliation and Communication With Other Providers Discharge Plan Discharge Items Patient Disposition: Home - Self-Care Reason For Visit: Left Renal Lesion Discharge Diagnosis: Left renal lesion Condition on Discharge: Good Activity: Per Instructions section Lifting: No more than 10 pounds Bathing Comment: Okay to shower tomorrow, no tub soaking. Sexual Activity: Wait until after follow-up appointment Exercise/Sports: Wait until after follow-up appointment Driving/Machine Use: Resume 1 day after discharge. No driving while taking prescription pain medication. Non-emergency contact: Urologist Call non-emergency contact if: your pain is not controlled, your temperature is above 101, your wound has increased redness, your wound has increased drainage and your wound pain has increased Follow-up/Referrals: Jovanny Ybarra DO [Physician] - 06/05/19 4:40 pm Feli Braun PA-C [Primary Care Provider] - Diet: Regular Addtl Attending Provider Instructions: Please take all medications as prescribed and keep all follow-ups as scheduled. Please call our office at [phone] with any questions, concerns or need to reschedule appointments for any reason. We are happy to assist you. Recovering at home: We recommend having someone with you for the first few days after surgery to help care for you. It is okay to shower tomorrow. Please avoid swimming, bathing or using hot tub until incisions are well healed. Avoid driving until you are not requiring pain medication any further. Walk at least a few times a day. Increase your distance, as you feel able. Stairs in your home are okay. Please avoid strenuous or sexual activity until your follow-up. We recommend using stool softener (i.e. Colace) to prevent constipation and straining, especially the first two weeks post operatively. Call [facility] [place] at [phone] if you experience: Chest pain or trouble breathing (call 911 or go to the hospital). Fever of 101F or higher Symptoms of infection at incision site, including redness or swelling, warmth, or bad-smelling drainage If you have catheter, and you notice: o Bloody urine or drainage that is dark red or has large clots (Please remember a small amount of blood is normal) o No drainage from the catheter for more than 6 hours o The catheter comes out of your bladder Pain that is not controlled with medicines Pending Studies at Discharge: Yes (Pathology) Stand-Alone Forms: My [facility] AnTuTu, Smoking Cessation Medications and DC Order Prescriptions: New oxycodone-acetaminophen [Percocet] 5-325 mg tablet 1 tab PO TID PRN (Reason: pain) Qty: 14 RF: 0 docusate sodium [Colace] 100 mg capsule 100 mg PO BID Qty: 60 RF: 0 Continued metoprolol succinate 25 mg Tablet Extended Release 24 Hr 25 mg PO QAM RF: 0 Discharge Orders: Discharge Order (Routine); Ordered 05/23/19 Ordered By: Charu Sunshine Admission Data Admit Date/Time: 05/22/19 11:29 Attending Provider: Jovanny Ybarra Admit Provider: Jovanny Ybarra Primary Care Provider: Feli Braun Other Interventions: Discharge Summary Assessment (RN) Last Done: 05/23/19 15:30 DC Date/Time DO NOT enter until pt leaves facility: 05/23/19 16:40
--- NOTE | 2019-05-31 08:18 | Coding Query ---
PATHOLOGY To promote full compliance with coding requirements relating to patient care, physician participation is requested in all cases of feather stitcher uncertainty. Please assist us with the question(s) below: Please review the Pathology report and please document any relevant diagnosis(es) below. Thank you , EULALIO Vail [facility] Diagnosis(es): Renal Cell Carcinoma MTDD
== END 2019-05-23 16:40 | disposition home or self-care (01) | DRG 658 ==
LOC: ASU 05:59 → 2N 11:29